=== PATIENT | female | born 1950 ===

== ENCOUNTER 2016-09-15 13:48 | Inpatient (IN) | payer OTHER ==
[2016-09-15] MEDS ORDERED: Sodium Chloride 0.9% 1,000 ML IV ONE (14:19)
--- NOTE | 2016-09-15 14:23 | C.PDOC ---
History Of Present Illness 65 y/o female, with past medical history of depression and diabetes, states she had a "gall bladder cyst that was inflamed and drained 3 weeks ago at [facility]. Patient presents to the emergency department today with complaint of severe RUQ abdominal pain for 3 days. Patient reports pain is radiating to her back and is associated with nausea with bilious vomiting. She notes she has been unable to eat or drink. Also reports low grade fever. Otherwise, denies headache, diarrhea , urinary symptoms, or other complaints at this time. Time Seen by Provider: 09/15/16 14:13 Chief Complaint (Nursing): Abdominal Pain History Per: Patient History/Exam Limitations: no limitations Onset/Duration Of Symptoms: Days Location Of Pain/Discomfort: RUQ Radiation Of Pain To:: Back Quality Of Discomfort: "Pain" Associated Symptoms: Nausea, Vomiting. denies: Fever, Chills, Diarrhea, Urinary Symptoms Recent travel outside of the [place]: No Abnormal Vaginal Bleeding: No Past Medical History Reviewed: Historical Data, Nursing Documentation, Vital Signs Vital Signs: Last Vital Signs Temp 97.5 F L 09/15/16 13:52 Pulse 78 09/15/16 16:39 Resp 20 09/15/16 16:39 BP 138/72 09/15/16 16:39 Pulse Ox 100 09/15/16 21:46 - Medical History PMH: HTN Family History: States: Unknown Family Hx - Social History Hx Alcohol Use: No Hx Substance Use: No - Immunization History Hx Influenza Vaccination: Yes Review Of Systems Except As Marked, All Systems Reviewed And Found Negative. Constitutional: Negative for: Fever, Chills ENT: Negative for: Throat Pain Cardiovascular: Negative for: Chest Pain Respiratory: Negative for: Cough, Shortness of Breath, Wheezing Gastrointestinal: Positive for: Nausea, Vomiting, Abdominal Pain. Negative for : Diarrhea Musculoskeletal: Positive for: Back Pain Skin: Negative for: Rash Neurological: Negative for: Headache Physical Exam - Physical Exam Appears: Non-toxic, Other (uncomfortable) Skin: Warm, Dry Head: Atraumatic, Normacephalic Oral Mucosa: Moist Chest: Symmetrical Cardiovascular: Rhythm Regular Respiratory: Normal Breath Sounds, No Rales, No Rhonchi, No Wheezing Gastrointestinal/Abdominal: Soft, Tenderness (localized, RUQ), No Mass, No Distention, Guarding, No Rebound Back: Normal Inspection, No CVA Tenderness Extremity: Normal ROM, Capillary Refill (< 2 sec. ) Neurological/Psych: Oriented x3, Normal Speech, Normal Cognition ED Course And Treatment - Laboratory Results Result Diagrams: 09/15/16 14:39 09/15/16 14:39 Lab Interpretation: Abnormal (Mild anemia, Elevated BUN 30, Cr 1.9, normal LFTs and lipase) O2 Sat by Pulse Oximetry: 100 (RA) Pulse Ox Interpretation: Normal - CT Scan/US Ultrasound Abdomen complete Other Rad Studies (CT/US): Read By Radiologist, Radiology Report Reviewed CT/US Interpretation: HISTORY: Abdominal pain. COMPARISON: None. TECHNIQUE: Grayscale imaging was performed. FINDINGS: LIVER: Measures 14.5 cm. There is mild diffuse increased echogenicity of the liver parenchyma. No mass. No intrahepatic bile duct dilatation. GALLBLADDER: The gallbladder is distended and there is mild wall thickening. No gallstones. The sonographic Joya's sign is negative. COMMON BILE DUCT: The common bile duct is dilated and measures 1.8 cm. There is a dilated tubular structure adjacent to the gallbladder likely a dilated cystic duct. PANCREAS: Unremarkable as visualized. No mass. No ductal dilatation. RIGHT KIDNEY: Measures 9.5cm. Normal echogenicity. No calculus, mass, or hydronephrosis. LEFT KIDNEY: Measures 10.3cm. Normal echogenicity. No calculus, mass, or hydronephrosis. SPLEEN: Normal in size and contour. No mass. AORTA: No aneurysmal dilatation. IVC: Unremarkable. OTHER FINDINGS: None. IMPRESSION: 1. Mild hepatic steatosis. 2. Distended gallbladder and diffuse dilatation of the common bile duct up without evidence of cholelithiasis or choledocholithiasis. Also suspected is dilatation of the cystic duct. CT scan of the abdomen and pelvis with oral and intravenous contrast is recommended for further evaluation and to exclude periampullary obstruction. CT Abdomen/Pelvis Other Rad Studies (CT/US): Read By Radiologist, Radiology Report Reviewed CT/US Interpretation: FINDINGS: Limitations: Evaluation is limited by lack of intravenous contrast material. Lower thorax: Heart size is normal. There are no focal infiltrates. There are small cysts at the lung bases. ABDOMEN: Liver : There is a small calcification in the liver. Gallbladder and bile ducts: Gallbladder is distended. Common duct is dilated. There is tapering at. the level of the pancreas. There is mild intrahepatic biliary ductal dilatation. Pancreas: Tail and body of the pancreas are atrophic. There is mild prominence of the pancreatic. head. Pancreatic duct is difficult to identify and evaluate. Spleen: unremarkable. Adrenals: unremarkable. Kidneys and ureters: unremarkable. Stomach and bowel: Stomach is almost completely empty. Rotation is normal. Small bowel is. partially opacified with contrast. There is no obstruction. Terminal ileum is unremarkable.Appendix is. not visualized.There is no pericecal inflammation. There is a large amount of stool in the colon. Appendix: See stomach and bowel. PELVIS: Bladder: unremarkable. Reproductive : Uterus and adnexal structures are unremarkable. ABDOMEN and PELVIS: Intraperitoneal space:There is no free air..There is no free fluid. Bones/ joints: unremarkable. Soft tissues: unremarkable. Vasculature: There are vascular calcifications. Lymph nodes: unremarkable. IMPRESSION: Distended gallbladder with dilated intra-and extrahepatic biliary ducts and tapering at the pancreas, atrophy of the pancreatic body and tail with mild prominence of pancreatic head,evaluation limited by lack of intravenous contrast. Obstructing lesion at the pancreatic head or ampulla cannot be excluded. MRCP suggested for more complete evaluation. Progress Note: Abdominal ultrasound and labs ordered. Treated with Zofran, morphine, IV fluids. Reevaluation Time: 22:11 Reassessment Condition: Improved (after pain medication.) - Physician Consult Information Time Consulting Physician Contacted: 22:11 Physician Contacted: Aaron Jolly Outcome Of Conversation: Patient to be admitted for work up of possible pancreatic neoplasm. Disposition - Disposition Disposition: HOSPITALIZED Disposition Time: 22:12 Condition: STABLE - POA Present On Arrival: None - Clinical Impression Clinical Impression: Abdominal pain, Dilated bile duct - Scribe Statement The provider has reviewed the documentation as recorded by the Scribcarlos Conteh All medical record entries made by the Joseibcarlos were at my direction and personally dictated by me. I have reviewed the chart and agree that the record accurately reflects my personal performance of the history, physical exam, medical decision making, and the department course for this patient. I have also personally directed, reviewed, and agree with the discharge instructions and disposition.
[2016-09-15] MEDS ORDERED: Sodium Chloride 0.9% 1,000 ML ONE (14:29)
[2016-09-15 14:43] LABS: BASO # 0.1 K/uL (0.0-0.2); BASO % 1.5 % (0.0-2.0); EOS # 0.3 K/uL (0.0-0.7); EOS % 4.2 % (0.0-4.0); HEMATOCRIT 32.1 % (34.0-47.0); LYMPH # 1.7 K/uL (1.0-4.3); LYMPH % 27.1 % (20.0-40.0); MEAN CELL VOLUME 90.3 fL (81.0-99.0); MEAN CORPUSCULAR HGB CONC 33.2 g/dL (33.0-37.0); MONO # 0.4 K/uL (0.0-0.8); MONO % 6.6 % (0.0-10.0); NRBC % 0.1 % (0.0-2.0); RED CELL DISTRIBUTION WIDTH 13.8 % (11.5-14.5); WHITE BLOOD COUNT 6.4 K/uL (4.8-10.8)
[2016-09-15 14:59] LABS: POTASSIUM 4.4 mmol/L (3.6-5.2)
[2016-09-15 15:01] LABS: ALB/GLOB RATIO 1.2 (1.0-2.1); BILIRUBIN,TOTAL 0.9 mg/dL (0.2-1.3); TOTAL PROTEIN 7.5 g/dL (6.3-8.3)
[2016-09-15 15:02] LABS: CALCIUM 9.4 mg/dl (8.6-10.4)
--- NOTE | 2016-09-15 16:10 | US ---
HISTORY: Abdominal pain COMPARISON: None. TECHNIQUE: Grayscale imaging was performed. FINDINGS: LIVER: Measures 14.5 cm. There is mild diffuse increased echogenicity of the liver parenchyma. No mass. No intrahepatic bile duct dilatation. GALLBLADDER: The gallbladder is distended and there is mild wall thickening. No gallstones. The sonographic Joya's sign is negative. COMMON BILE DUCT: The common bile duct is dilated and measures 1.8 cm. There is a dilated tubular structure adjacent to the gallbladder likely a dilated cystic duct. PANCREAS: Unremarkable as visualized. No mass. No ductal dilatation. RIGHT KIDNEY: Measures 9.5cm. Normal echogenicity. No calculus, mass, or hydronephrosis. LEFT KIDNEY: Measures 10.3cm. Normal echogenicity. No calculus, mass, or hydronephrosis. SPLEEN: Normal in size and contour. No mass. AORTA: No aneurysmal dilatation. IVC: Unremarkable. OTHER FINDINGS: None. IMPRESSION: 1. Mild hepatic steatosis. 2. Distended gallbladder and diffuse dilatation of the common bile duct up without evidence of cholelithiasis or choledocholithiasis. Also suspected is dilatation of the cystic duct. CT scan of the abdomen and pelvis with oral and intravenous contrast is recommended for further evaluation and to exclude periampullary obstruction.
[2016-09-15] MEDS ORDERED: Iohexol 240 (50 ml) PO ONE (17:51)
[2016-09-15] MEDS ORDERED: Iohexol 240 (50 ml) ONE (18:00)
--- NOTE | 2016-09-15 21:42 | CT ---
EXAM: CT Abdomen and Pelvis Without Intravenous Contrast CLINICAL HISTORY: 65 years old, female; Pain; Abdominal pain; Localized; Right upper quadrant (ruq); Additional info: Ruq pain, dilated cbd and cystic duct TECHNIQUE: Axial computed tomography images of the abdomen and pelvis with intravenous contrast. This CT exam was performed using one or more of the following dose reduction techniques: automated exposure control, adjustment of the mA and/or kV according to patient size, and/or use of iterative reconstruction technique. Coronal and sagittal reformatted images were created and reviewed. CONTRAST: 50 mL of omnipaque 240 administered PO EXAM DATE/TIME: 09/15/2016 6:23 PM COMPARISON: There are no prior studies for comparison. FINDINGS: Limitations: Evaluation is limited by lack of intravenous contrast material Lower thorax: Heart size is normal. There are no focal infiltrates. There are small cysts at the lung bases. ABDOMEN: Liver: There is a small calcification in the liver. Gallbladder and bile ducts: Gallbladder is distended. Common duct is dilated. There is tapering at the level of the pancreas. There is mild intrahepatic biliary ductal dilatation Pancreas: Tail and body of the pancreas are atrophic. There is mild prominence of the pancreatic head. Pancreatic duct is difficult to identify and evaluate. Spleen: unremarkable Adrenals: unremarkable Kidneys and ureters: unremarkable Stomach and bowel: Stomach is almost completely empty. Rotation is normal. Small bowel is partially opacified with contrast. There is no obstruction. Terminal ileum is unremarkable.Appendix is not visualized.There is no pericecal inflammation. There is a large amount of stool in the colon. Appendix: See stomach and bowel PELVIS: Bladder: unremarkable Reproductive: Uterus and adnexal structures are unremarkable. ABDOMEN and PELVIS: Intraperitoneal space:There is no free air..There is no free fluid. Bones/joints: unremarkable Soft tissues: unremarkable Vasculature: There are vascular calcifications. Lymph nodes: unremarkable IMPRESSION: Distended gallbladder with dilated intra-and extrahepatic biliary ducts and tapering at the pancreas, atrophy of the pancreatic body and tail with mild prominence of pancreatic head, evaluation limited by lack of intravenous contrast Obstructing lesion at the pancreatic head or ampulla cannot be excluded. MRCP suggested for more complete evaluation
--- NOTE | 2016-09-15 22:26 | CP.PCM.HP ---
<Filiberto Carbajal - Last Filed: 09/16/16 02:20> History of Present Illness - History of Present Illness History of Present Illness: CC: severe RUQ abdominal pain + nausea/vomting for 3 days. HPI: This 65 y/o female with PMHx of HTN, DM, Dilated Gallbladder - presents c/ o RUQ abdominal pain with nausea/vomiting for the past 3 days. She admits to dealing with this issue for over 6 months, and her PMD initially suspected gastritis, treating her appropriately. Her symptoms did not resolve, and 3 weeks ago, her PMD sent her to [facility] for 6/10 RUQ pain. She was admitted for 2 days, received an abdominal US as well as an EGD, however she does not recall the results, stating that it is an issue with her Gallbladder. They treated her pain and gave her IV abx while admitted, however she states that "they did not fix the problem because I do not have insurance." Soon after discharge, her RUQ pain resumed, and 3 days ago, it intensified to an 8/10 with radiation to the R back. She admits to associated nausea, vomiting, and decreased appetite. She has vomited 3-4 times per day, for the past 3 days, and admits to feeling weak a result. She denies hematemesis. She otherwise denies f/ c, dizziness, headache, chest pain, palpitations, sore throat, dysphagia, SOB, d /c, dysuria, LE swelling, recent travel, or sick contacts. ED course: US abdomen, CT abd/pelvis w/PO contrast; NS 1L; Zofran 4mg IVP; Morphine 2mg IVP. PMHx: HTN, DM, Dilated Gallbladder PSHx: GB Cyst drainage (3wks ago) Meds: Metformin 1000mg PO BID; Amlodipine 5mg PO qd; Lisinopril 25mg PO qd; HCTZ 20mg PO qd Allergies: NKDA FamHx: denies SocHx: Denies tobacco, ETOH, or drug use; Lives in apt with family; works as house keeper PMD: Dr. Consuelo Rosales Review of Systems: -Gen: + lethargy, weakness. denies fever, chills, headache. -HEENT: denies headache, dizziness, change in vision, change in hearing, sore throat, dysphagia, congestion. -Cardio: denies chest pain, palpitations, lower extremity edema, orthopnea. -Resp: denies cough, dyspnea, hemoptysis, wheezing, pain on inspiration, congestion, mucous. -GI: +RUQ abdominal pain, nausea/vomiting. denies diarrhea/constipation, hematochezia, hematemesis. -: denies dysuria, urinary freq, incontinence, hematuria, change in urinary stream. -MSK: denies back pain, muscle weakness, radiating pain. -Skin: denies itching, rash, lesions. -Neuro: denies confusion, numbness, tingling, focal weakness, radicular pain, syncope. -Psych: denies anxiety, depression, H/I, S/I, hallucinations. Present on Admission - Present on Admission Any Indicators Present on Admission: No Past Patient History - Past Social History Smoking Status: Never Smoked - CARDIAC Hx Hypertension: Yes - ENDOCRINE/METABOLIC Hx Endocrine Disorders: Yes Hx Diabetes Mellitus Type 2: Yes - PSYCHIATRIC Hx Substance Use: No - SURGICAL HISTORY Hx Surgeries: Yes Other/Comment: EYE SX - ANESTHESIA Hx Anesthesia: Yes Hx Anesthesia Reactions: No Meds Allergies/Adverse Reactions: Allergies Allergy/AdvReac Type Severity Reaction Status Date / Time No Known Allergies Allergy Verified 09/15/16 13:52 Physical Exam - Constitutional Appears: Non-toxic, No Acute Distress - Head Exam Head Exam: ATRAUMATIC, NORMAL INSPECTION - Eye Exam Eye Exam: EOMI, Normal appearance, PERRL - ENT Exam ENT Exam: Mucous Membranes Moist - Neck Exam Neck exam: Negative for: Lymphadenopathy, Tenderness - Respiratory Exam Respiratory Exam: Clear to Auscultation Bilateral, NORMAL BREATHING PATTERN. absent: Rhonchi, Wheezes - Cardiovascular Exam Cardiovascular Exam: REGULAR RHYTHM, +S1, +S2. absent: Systolic Murmur - GI/Abdominal Exam GI & Abdominal Exam: Guarding, Normal Bowel Sounds, Soft, Tenderness (RUQ). absent: Distended, Firm - Extremities Exam Extremities exam: Positive for: normal capillary refill, normal inspection, pedal pulses present. Negative for: pedal edema, tenderness - Back Exam Back exam: NORMAL INSPECTION. absent: CVA tenderness (L), CVA tenderness (R), paraspinal tenderness - Neurological Exam Neurological exam: Alert, CN II-XII Intact, Oriented x3, Reflexes Normal - Psychiatric Exam Psychiatric exam: Normal Affect, Normal Mood - Skin Skin Exam: Dry, Intact, Normal Color, Warm Results - Vital Signs Recent Vital Signs: Last Vital Signs Temp 97.5 F L 09/15/16 13:52 Pulse 78 09/15/16 16:39 Resp 20 09/15/16 16:39 BP 138/72 09/15/16 16:39 Pulse Ox 100 09/15/16 22:13 - Labs Result Diagrams: 09/15/16 14:39 09/15/16 14:39 Labs: Laboratory Results - last 24 hr 09/15/16 09/15/16 14:39 14:39 WBC 6.4 RBC 3.55 L Hgb 10.6 L Hct 32.1 L MCV 90.3 MCH 30.0 MCHC 33.2 RDW 13.8 Plt Count 327 MPV 8.0 Neut % (Auto) 60.6 Lymph % (Auto) 27.1 [place] % (Auto) 6.6 Eos % (Auto) 4.2 H Baso % (Auto) 1.5 Neut # 3.9 Lymph # 1.7 [place] # 0.4 Eos # 0.3 Baso # 0.1 Sodium 140 Potassium 4.4 Chloride 100 Carbon Dioxide 20 L Anion Gap 24 H BUN 30 H Creatinine 1.9 H Est GFR ( Amer) 32 Est GFR (Non-Af Amer) 27 Random Glucose 133 H Calcium 9.4 Total Bilirubin 0.9 AST 31 ALT 33 Alkaline Phosphatase 107 Total Protein 7.5 Albumin 4.1 Globulin 3.4 Albumin/Globulin Ratio 1.2 Lipase 279 Assessment & Plan - Assessment and Plan (Free Text) Assessment: RUQ Abdominal Pain / Dilated Bile ducts * Mild anemia, Elevated BUN 30, Cr 1.9, normal LFTs and lipase) * r/o pancreatic neoplasm * ED course: NS 1L; Zofran 4mg IVP; Morphine 2mg IVP * US abdominal - 1. Mild hepatic steatosis. 2. Distended gallbladder and diffuse dilatation of the common bile duct up without evidence of cholelithiasis or choledocholithiasis. Also suspected is dilatation of the cystic duct. CT scan of the abdomen and pelvis with oral and intravenous contrast is recommended for further evaluation and to exclude periampullary obstruction. (See full report) * CT abdomen/pelvis w/PO contrast - Distended gallbladder with dilated intra- and extrahepatic biliary ducts and tapering at the pancreas, atrophy of the pancreatic body and tail with mild prominence of pancreatic head,evaluation limited by lack of intravenous contrast. Obstructing lesion at the pancreatic head or ampulla cannot be excluded. MRCP suggested for more complete evaluation. (See full report) * GI consult, Dr. Flores, f/u recs * Tylenol 650mg PO Q6H PRN, pain Nausea / Vomiting * Zofran 4mg IVP Q8H prn * Liquid diet Acute Kidney Injury * Likely due to dehydration * NS 1L bolused in ED * GFR 27 * NS 0.9% at 100cc/hr Diabetes * Hold Home med: Metformin 1000mg PO BID for 24 hrs due to PO Contrast * Novolog ISS - low dose * f/u am labs: A1c, TSH, free T4, lipids Hypertension * BP 98/62 on admission --> 138/72 * Continue Home: Amlodipine 5mg PO qd; Lisinopril 20mg PO qd; HCTZ 25mg PO qd Prophylaxis * Liquid diet * Pepcid 20mg IVP daily * Hep 5k SC Q12 * SCDs - Date & Time Date: 09/15/16 Time: 22:30 <Aaron Jolly - Last Filed: 09/16/16 05:46> Results - Vital Signs Recent Vital Signs: Last Vital Signs Temp 97.5 F L 09/16/16 00:25 Pulse 85 09/16/16 00:25 Resp 18 09/16/16 01:12 BP 146/97 H 09/16/16 00:25 Pulse Ox 98 09/16/16 00:25 - Labs Result Diagrams: 09/15/16 14:39 09/15/16 14:39 Assessment & Plan - Date & Time Date: 09/16/16 (I have seen and examined the patient. I agree with the findings and plan of care as documented by Dr. Carbajal. Patient with RUQ abdominal pain with nausea and vomiting. CT positive with dilated CBD and possible lesion. Consult to GI. Possible need for MRCP. Symptomatic treatment for now. Also with acute kidney injury. Likely secondary to hypovolemia. IVF. Received bolus in ED. Monitor for acute changes.) Time: 05:44 Attending/Attestation - Attestation I have personally seen and examined this patient.: Yes I have fully participated in the care of the patient.: Yes I have reviewed all pertinent clinical information: Yes
[2016-09-16] MEDS ORDERED: Sodium Chloride 0.9% 1,000 ML IV SCH (02:15)
[2016-09-16] MEDS: Sodium Chloride 0.9% 1,000 ML IV SCH (02:48)
[2016-09-16] MEDS: (Novolog) Insulin Aspart, Recombinant 100 u/ml 10 ml vial SC SCH ×3 (07:30→11:21)
--- NOTE | 2016-09-16 07:50 | CP.PCM.CON ---
History of Present Illness - History of Present Illness History of Present Illness: ASked to see pt for abdom pain. Pt seen with [facility]. Pt repots was recently pamela Booker with same- RUq pain. Had "GB CYST drained". Had EGD .CT, MRI there. Now presents to with same RUQ pain.- sharp on and off, moderate. Also nausea and vomiting. Review of Systems - Constitutional Constitutional: Anorexia. absent: Chills, Fever - Cardiovascular Cardiovascular: absent: Chest Pain, Dyspnea - Respiratory Respiratory: absent: Hemoptysis, Wheezing - Gastrointestinal Gastrointestinal: Abdominal Pain, Nausea, Vomiting. absent: Diarrhea, Hematemesis, Hematochezia, Melena - Musculoskeletal Musculoskeletal: absent: Muscle Cramps - Integumentary Integumentary: absent: Jaundice - Neurological Neurological: absent: Convulsions Past Patient History - Past Medical History & Family History Past Medical History?: Yes - Past Social History Smoking Status: Never Smoked - CARDIAC Hx Hypertension: Yes - PULMONARY Hx Respiratory Disorders: No - NEUROLOGICAL Hx Neurological Disorder: No - HEENT Hx HEENT Problems: No - ENDOCRINE/METABOLIC Hx Endocrine Disorders: Yes Hx Diabetes Mellitus Type 2: Yes - HEMATOLOGICAL/ONCOLOGICAL Hx Blood Disorders: No - INTEGUMENTARY Hx Dermatological Problems: No - MUSCULOSKELETAL/RHEUMATOLOGICAL Hx Falls: No - GASTROINTESTINAL Hx Gastrointestinal Disorders: Yes Hx Fatty Liver Disease: Yes Hx Gall Bladder Disease: Yes - GENITOURINARY/GYNECOLOGICAL Hx Genitourinary Disorders: No - PSYCHIATRIC Hx Substance Use: No - SURGICAL HISTORY Hx Surgeries: Yes Other/Comment: EYE SX - ANESTHESIA Hx Anesthesia: Yes Hx Anesthesia Reactions: No Meds Allergies/Adverse Reactions: Allergies Allergy/AdvReac Type Severity Reaction Status Date / Time No Known Allergies Allergy Verified 09/15/16 13:52 - Medications Medications: Current Medications Acetaminophen (Tylenol 325mg Tab) 650 mg PO Q6 PRN PRN Reason: Pain, Mild (1-3) Amlodipine Besylate (Norvasc) 5 mg PO DAILY [facility] Famotidine (Pepcid) 20 mg IVP DAILY [facility] Heparin Sodium (Porcine) (Heparin) 5,000 units SC Q12 [facility] Hydrochlorothiazide (Hydrodiuril) 25 mg PO DAILY [facility] Sodium Chloride (Sodium Chloride 0.9%) 1,000 mls @ 100 mls/hr IV .Q10H [facility] Last Admin: 09/16/16 02:48 Dose: 100 mls/hr Insulin Aspart (Novolog) 0 unit SC ACHS [facility] PRN Reason: Protocol Lisinopril (Zestril) 20 mg PO DAILY [facility] Ondansetron HCl (Zofran Inj) 4 mg IVP Q8H PRN PRN Reason: Nausea/Vomiting Pneumococcal Polyvalent Vaccine (Pneumovax 23 Vaccine) 0.5 ml IM .ONCE ONE Stop: 09/18/16 10:01 Physical Exam - Constitutional Appears: Well - Respiratory Exam Respiratory Exam: Clear to Auscultation Bilateral - Cardiovascular Exam Cardiovascular Exam: RRR - GI/Abdominal Exam GI & Abdominal Exam: Normal Bowel Sounds, Soft, Tenderness. absent: Distended, Guarding, Mass, Rebound Additional comments: mild ruq tenderness - Extremities Exam Extremities exam: Positive for: normal inspection - Neurological Exam Neurological exam: Alert, Oriented x3 Results - Vital Signs Recent Vital Signs: Last Vital Signs Temp 97.5 F L 09/16/16 00:25 Pulse 85 09/16/16 00:25 Resp 18 09/16/16 01:12 BP 146/97 H 09/16/16 00:25 Pulse Ox 98 09/16/16 00:25 - Labs Result Diagrams: 09/15/16 14:39 09/15/16 14:39 Labs: Laboratory Results - last 24 hr 09/16/16 07:17 POC Glucose (mg/dL) 108 Assessment & Plan (1) Diabetes mellitus Status: Acute (2) HTN (hypertension) Status: Acute (3) Vomiting Assessment and Plan: Related to gallbladder? Consider gastritis. Pt reports she was told has gastritis. Status: Acute (4) Anemia Status: Acute (5) Gallbladder disease Assessment and Plan: DIstended GB,. She reports that she had a GB cyst drained at [facility] and was on antibiotics. LFTs are normal. No ductal stones seen. Lipase is normal. REC: Surgery consult. NPO. Pepcid/PPI,Get records , scans, MRI from [facility]. Status: Acute (6) Abdominal pain Status: Acute (7) Dilated bile duct Status: Acute
[2016-09-16 08:23] LABS: BASO # 0.1 K/uL (0.0-0.2); EOS # 0.4 K/uL (0.0-0.7); EOS % 6.8 % (0.0-4.0); HEMATOCRIT 32.8 % (34.0-47.0); LYMPH # 1.9 K/uL (1.0-4.3); LYMPH % 30.2 % (20.0-40.0); MEAN CELL VOLUME 89.8 fL (81.0-99.0); MEAN CORPUSCULAR HGB CONC 33.5 g/dL (33.0-37.0); MEAN PLATELET VOLUME 8.3 fL (7.2-11.7); MONO # 0.4 K/uL (0.0-0.8); MONO % 7.1 % (0.0-10.0); RED CELL DISTRIBUTION WIDTH 14.3 % (11.5-14.5); WHITE BLOOD COUNT 6.2 K/uL (4.8-10.8)
[2016-09-16 08:50] LABS: ALB/GLOB RATIO 1.2 (1.0-2.1); BILIRUBIN,TOTAL 1.1 mg/dL (0.2-1.3); PHOSPHOROUS 3.3 mg/dL (2.5-4.5); TOTAL PROTEIN 7.4 g/dL (6.3-8.3)
[2016-09-16 08:51] LABS: CALCIUM 9.2 mg/dl (8.6-10.4); MAGNESIUM 1.3 mg/dL (1.6-2.3)
[2016-09-16 09:28] LABS: THYROID STIMULATING HORMONE 1.93 mIU/L (0.46-4.68)
[2016-09-16] MEDS ORDERED: Magnesium Sulfate 1 gm in D5W 1 GM/100 ML BAG IVPB ONE (10:05)
[2016-09-16 11:54] LABS: CHOLESTEROL 181 mg/dL (0-199)
[2016-09-16 12:30] LABS: CA 19-9 < 1.4 U/mL (0-37)
[2016-09-16 15:47] VITALS: RESP 20
--- NOTE | 2016-09-16 16:00 | CP.PCM.PN ---
<Cara Chambers - Last Filed: 09/16/16 19:00> Subjective - Date & Time of Evaluation Date of Evaluation: 09/16/16 Time of Evaluation: 07:00 - Subjective Subjective: PGY1- Medicine Note- Dr. Fajardo's Service Patient seen and examined at bedside and in no acute distress. Patient is having abdominal pain still which she says starts at epigastrum and radiates to RUQ. Patient rates the pain an 8/10. Patient denies nausea, vomiting, shortness of breath, chest pain, constipation, diarrhea. Objective - Vital Signs/Intake and Output Vital Signs (last 24 hours): Temp Pulse Resp BP Pulse Ox 98.1 F 86 20 124/74 96 09/16/16 15:45 09/16/16 15:45 09/16/16 15:45 09/16/16 15:45 09/16/16 15:45 - Medications Medications: Current Medications Acetaminophen (Tylenol 325mg Tab) 650 mg PO Q6 PRN PRN Reason: Pain, Mild (1-3) Amlodipine Besylate (Norvasc) 5 mg PO DAILY [facility] Last Admin: 09/16/16 10:15 Dose: 5 mg Famotidine (Pepcid) 20 mg IVP DAILY [facility] Last Admin: 09/16/16 10:45 Dose: 20 mg Heparin Sodium (Porcine) (Heparin) 5,000 units SC Q12 [facility] Last Admin: 09/16/16 10:14 Dose: 5,000 units Hydrochlorothiazide (Hydrodiuril) 25 mg PO DAILY [facility] Last Admin: 09/16/16 10:15 Dose: 25 mg Sodium Chloride (Sodium Chloride 0.9%) 1,000 mls @ 100 mls/hr IV .Q10H [facility] Last Admin: 09/16/16 02:48 Dose: 100 mls/hr Insulin Aspart (Novolog) 0 unit SC ACHS [facility] PRN Reason: Protocol Last Admin: 09/16/16 11:21 Dose: Not Given Lisinopril (Zestril) 20 mg PO DAILY [facility] Last Admin: 09/16/16 10:14 Dose: 20 mg Ondansetron HCl (Zofran Inj) 4 mg IVP Q8H PRN PRN Reason: Nausea/Vomiting Pneumococcal Polyvalent Vaccine (Pneumovax 23 Vaccine) 0.5 ml IM .ONCE ONE Stop: 09/18/16 10:01 - Labs Labs: 09/16/16 08:10 09/16/16 08:10 - Constitutional Appears: Well, Non-toxic - Head Exam Head Exam: ATRAUMATIC, NORMAL INSPECTION, NORMOCEPHALIC - Eye Exam Eye Exam: EOMI, Normal appearance, PERRL - ENT Exam ENT Exam: Mucous Membranes Moist, Normal Exam - Neck Exam Neck Exam: Full ROM, Normal Inspection. absent: Lymphadenopathy - Respiratory Exam Respiratory Exam: Clear to Ausculation Bilateral, NORMAL BREATHING PATTERN. absent: Rhonchi, Wheezes, Respiratory Distress, Stridor - Cardiovascular Exam Cardiovascular Exam: REGULAR RHYTHM, RRR - GI/Abdominal Exam GI & Abdominal Exam: Soft, Tenderness, Normal Bowel Sounds Additional comments: RUQ tenderness - Extremities Exam Extremities Exam: Full ROM, Normal Inspection. absent: Pedal Edema - Back Exam Back Exam: NORMAL INSPECTION. absent: rash noted - Neurological Exam Neurological Exam: Alert, Awake, Oriented x3 - Psychiatric Exam Psychiatric exam: Normal Affect, Normal Mood - Skin Skin Exam: Dry, Normal Color, Warm Assessment and Plan - Assessment and Plan (Free Text) Assessment: RUQ Abdominal Pain / Dilated Bile ducts * Mild anemia, Elevated BUN 30, Cr 1.9, normal LFTs and lipase * Creatinine decreased to 1.2 on 09/16 * r/o pancreatic neoplasm * ED course: NS 1L; Zofran 4mg IVP; Morphine 2mg IVP * US abdominal - 1. Mild hepatic steatosis. 2. Distended gallbladder and diffuse dilatation of the common bile duct up without evidence of cholelithiasis or choledocholithiasis. Also suspected is dilatation of the cystic duct. CT scan of the abdomen and pelvis with oral and intravenous contrast is recommended for further evaluation and to exclude periampullary obstruction. (See full report) * CT abdomen/pelvis w/PO contrast - Distended gallbladder with dilated intra- and extrahepatic biliary ducts and tapering at the pancreas, atrophy of the pancreatic body and tail with mild prominence of pancreatic head,evaluation limited by lack of intravenous contrast. Obstructing lesion at the pancreatic head or ampulla cannot be excluded. MRCP suggested for more complete evaluation. (See full report) * GI consult, Dr. Flores, help appreciated * Surgery, Dr. Balbuena consulted, help appreciated * Tylenol 650mg PO Q6H PRN, pain Nausea / Vomiting * Zofran 4mg IVP Q8H prn * Liquid diet Acute Kidney Injury * Likely due to dehydration * NS 1L bolused in ED * GFR 27 * GFR increased to 45 on 09/16 * NS 0.9% at 100cc/hr Diabetes * Hold Home med: Metformin 1000mg PO BID for 24 hrs due to PO Contrast * Novolog ISS - low dose * f/u am labs: A1c: 6.4 * TSH: 1.93 * free T4: 1.24 * lipids WNL Hypertension * BP 98/62 on admission --> 138/72 * Continue Home: Amlodipine 5mg PO qd; Lisinopril 20mg PO qd; HCTZ 25mg PO qd Prophylaxis * Liquid diet * Pepcid 20mg IVP daily * Hep 5k SC Q12 * SCDs <Jaylyn Fajardo V - Last Filed: 09/16/16 19:40> Objective - Vital Signs/Intake and Output Vital Signs (last 24 hours): Temp Pulse Resp BP Pulse Ox 98.1 F 86 20 124/74 96 09/16/16 15:45 09/16/16 15:45 09/16/16 15:45 09/16/16 15:45 09/16/16 15:45 - Medications Medications: Current Medications Acetaminophen (Tylenol 325mg Tab) 650 mg PO Q6 PRN PRN Reason: Pain, Mild (1-3) Amlodipine Besylate (Norvasc) 5 mg PO DAILY [facility] Last Admin: 09/16/16 10:15 Dose: 5 mg Famotidine (Pepcid) 20 mg IVP DAILY [facility] Last Admin: 09/16/16 10:45 Dose: 20 mg Heparin Sodium (Porcine) (Heparin) 5,000 units SC Q12 [facility] Last Admin: 09/16/16 10:14 Dose: 5,000 units Hydrochlorothiazide (Hydrodiuril) 25 mg PO DAILY [facility] Last Admin: 09/16/16 10:15 Dose: 25 mg Sodium Chloride (Sodium Chloride 0.9%) 1,000 mls @ 100 mls/hr IV .Q10H [facility] Last Admin: 09/16/16 02:48 Dose: 100 mls/hr Insulin Aspart (Novolog) 0 unit SC ACHS [facility] PRN Reason: Protocol Last Admin: 09/16/16 11:21 Dose: Not Given Lisinopril (Zestril) 20 mg PO DAILY [facility] Last Admin: 09/16/16 10:14 Dose: 20 mg Ondansetron HCl (Zofran Inj) 4 mg IVP Q8H PRN PRN Reason: Nausea/Vomiting Pneumococcal Polyvalent Vaccine (Pneumovax 23 Vaccine) 0.5 ml IM .ONCE ONE Stop: 09/18/16 10:01 - Labs Labs: 09/16/16 08:10 09/16/16 08:10 Attending/Attestation - Attestation I have personally seen and examined this patient.: Yes I have fully participated in the care of the patient.: Yes I have reviewed all pertinent clinical information, including history, physical exam and plan: Yes Notes (Text): Patient seen, examined and case discussed with day-time resident. Patient seen at bedside this morning. Patient reporting Right Upper quadrant pain. Patient reports she was recently hospitalized at [facility] completed GI workup including imaging and possible endoscopy. Patient given written consent to retrieve reports from [facility] to retrieve reports. Patient reports she has some type of cyst requiring surgical intervention but could not afford the surgery secondary to insurance. GI on consult-->help appreciated General surgery on consult--f/u recommendations Assessment/Plan 1) Abdominal Pain * GI consult, Dr. Flores, help appreciated * Surgery, Dr. Balbuena consulted, help appreciated * US abdominal - 1. Mild hepatic steatosis. 2. Distended gallbladder and diffuse dilatation of the common bile duct up without evidence of cholelithiasis or choledocholithiasis. Also suspected is dilatation of the cystic duct. CT scan of the abdomen and pelvis with oral and intravenous contrast is recommended for further evaluation and to exclude periampullary obstruction. (See full report) * CT abdomen/pelvis w/PO contrast - Distended gallbladder with dilated intra- and extrahepatic biliary ducts and tapering at the pancreas, atrophy of the pancreatic body and tail with mild prominence of pancreatic head,evaluation limited by lack of intravenous contrast. Obstructing lesion at the pancreatic head or ampulla cannot be excluded. MRCP suggested for more complete evaluation. (See full report) * Attempt to retrieve prior records from prior hospitalization at [facility]? * Tylenol 650mg PO Q6H PRN, pain 2) Nausea / Vomiting * Zofran 4mg IVP Q8H prn * Liquid diet 3) Acute Kidney Injury * possible due to dehydration * NS 0.9% at 100cc/hr * Monitor BUN/CR * Unknown baseline 4) Diabetes * Controlled * Hold Home med: Metformin 1000mg PO BID for 24-48 hours due to PO Contrast * Lisinopril 20mg PO qdaily * Novolog ISS - low dose * f/u am labs: A1c: 6.4 * TSH: 1.93 * free T4: 1.24 * lipids WNL 5) Hypertension * BP 98/62 on admission --> 138/72 * Continue Home: Amlodipine 5mg PO qdaily; Lisinopril 20mg PO qdaily; HCTZ 25mg PO qdaily 6) Prophylaxis * Liquid diet * Pepcid 20mg IVP daily for GI ppx * Hep 5000 SC Q12 for DVT ppx * SCDs
--- NOTE | 2016-09-16 17:01 | CP.PCM.CON ---
Addendum entered and electronically signed by Orin Daigle DO 09/16/16 17: 27: Proposal Coordinator changed to Dr. Balbuena. Will discuss with Dr. Balbuena regarding further treatment plan. Original Note: <Orin Daigle - Last Filed: 09/16/16 17:02> History of Present Illness - History of Present Illness History of Present Illness: Surgery: Dr. 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 Patient states that she has had RUQ pain for the past 3 months. She states over the past 3 days there has been an acute worsening in the pain. She reports associated nausea and vomiting. She states the pain is worse when she eats. She states that she was scheduled for operation for the cyst at [facility] 1.5 months ago however due to insurance problems the surgery was cancelled. She states at that hospital underwent MRCP and Endoscopy. Originally she states the cyst was the size of a raisin however most recent hospitalization was told the cyst has significantly increased in size. PMH: HTN, DM, biliary tree cyst PSH: catatract Social: lives at home, no abuse of ETOH or tobacco Review of Systems - Review of Systems All systems: reviewed and no additional remarkable complaints except Review of Systems: otherwise negative unless stated in HPI Past Patient History - Past Medical History & Family History Past Medical History?: Yes - Past Social History Smoking Status: Never Smoked - CARDIAC Hx Hypertension: Yes - PULMONARY Hx Respiratory Disorders: No - NEUROLOGICAL Hx Neurological Disorder: No - HEENT Hx HEENT Problems: No - ENDOCRINE/METABOLIC Hx Endocrine Disorders: Yes Hx Diabetes Mellitus Type 2: Yes - HEMATOLOGICAL/ONCOLOGICAL Hx Blood Disorders: No - INTEGUMENTARY Hx Dermatological Problems: No - MUSCULOSKELETAL/RHEUMATOLOGICAL Hx Falls: No - GASTROINTESTINAL Hx Gastrointestinal Disorders: Yes Hx Fatty Liver Disease: Yes Hx Gall Bladder Disease: Yes - GENITOURINARY/GYNECOLOGICAL Hx Genitourinary Disorders: No - PSYCHIATRIC Hx Substance Use: No - SURGICAL HISTORY Hx Surgeries: Yes Other/Comment: EYE SX - ANESTHESIA Hx Anesthesia: Yes Hx Anesthesia Reactions: No Meds Allergies/Adverse Reactions: Allergies Allergy/AdvReac Type Severity Reaction Status Date / Time No Known Allergies Allergy Verified 09/15/16 13:52 - Medications Medications: Current Medications Acetaminophen (Tylenol 325mg Tab) 650 mg PO Q6 PRN PRN Reason: Pain, Mild (1-3) Amlodipine Besylate (Norvasc) 5 mg PO DAILY [facility] Last Admin: 09/16/16 10:15 Dose: 5 mg Famotidine (Pepcid) 20 mg IVP DAILY [facility] Last Admin: 09/16/16 10:45 Dose: 20 mg Heparin Sodium (Porcine) (Heparin) 5,000 units SC Q12 [facility] Last Admin: 09/16/16 10:14 Dose: 5,000 units Hydrochlorothiazide (Hydrodiuril) 25 mg PO DAILY [facility] Last Admin: 09/16/16 10:15 Dose: 25 mg Sodium Chloride (Sodium Chloride 0.9%) 1,000 mls @ 100 mls/hr IV .Q10H [facility] Last Admin: 09/16/16 02:48 Dose: 100 mls/hr Insulin Aspart (Novolog) 0 unit SC ACHS [facility] PRN Reason: Protocol Last Admin: 09/16/16 11:21 Dose: Not Given Lisinopril (Zestril) 20 mg PO DAILY [facility] Last Admin: 09/16/16 10:14 Dose: 20 mg Ondansetron HCl (Zofran Inj) 4 mg IVP Q8H PRN PRN Reason: Nausea/Vomiting Pneumococcal Polyvalent Vaccine (Pneumovax 23 Vaccine) 0.5 ml IM .ONCE ONE Stop: 09/18/16 10:01 Physical Exam - Constitutional Appears: Non-toxic, No Acute Distress - Head Exam Head Exam: ATRAUMATIC, NORMOCEPHALIC - Eye Exam Eye Exam: EOMI, Normal appearance - ENT Exam ENT Exam: Mucous Membranes Moist - Respiratory Exam Respiratory Exam: NORMAL BREATHING PATTERN. absent: Respiratory Distress - Cardiovascular Exam Cardiovascular Exam: REGULAR RHYTHM. absent: Tachycardia - GI/Abdominal Exam GI & Abdominal Exam: Soft, Tenderness (RUQ moderate w/ fullness palpated in RUQ possibly gallbladder ). absent: Firm, Guarding, Rebound, Rigid - Extremities Exam Extremities exam: Positive for: normal inspection. Negative for: calf tenderness, pedal edema - Neurological Exam Neurological exam: Alert, Oriented x3 - Psychiatric Exam Psychiatric exam: Normal Affect, Normal Mood - Skin Skin Exam: Dry, Intact, Normal Color, Warm Results - Vital Signs Recent Vital Signs: Last Vital Signs Temp 98.1 F 09/16/16 15:45 Pulse 86 09/16/16 15:45 Resp 20 09/16/16 15:45 BP 124/74 09/16/16 15:45 Pulse Ox 96 09/16/16 15:45 - Labs Result Diagrams: 09/16/16 08:10 09/16/16 08:10 Labs: Laboratory Results - last 24 hr 09/16/16 09/16/16 09/16/16 07:17 08:10 08:10 WBC 6.2 RBC 3.65 L Hgb 11.0 Hct 32.8 L MCV 89.8 MCH 30.0 MCHC 33.5 RDW 14.3 Plt Count 333 MPV 8.3 Neut % (Auto) 54.9 Lymph % (Auto) 30.2 [place] % (Auto) 7.1 Eos % (Auto) 6.8 H Baso % (Auto) 1.0 Neut # 3.4 Lymph # 1.9 [place] # 0.4 Eos # 0.4 Baso # 0.1 Sodium 138 Potassium 4.0 Chloride 98 Carbon Dioxide 22 Anion Gap 21 H BUN 19 H Creatinine 1.2 Est GFR ( Amer) 55 Est GFR (Non-Af Amer) 45 POC Glucose (mg/dL) 108 Random Glucose 120 H Hemoglobin A1c Calcium 9.2 Phosphorus 3.3 Magnesium 1.3 L Total Bilirubin 1.1 GGT AST 26 ALT 39 Alkaline Phosphatase 110 Total Protein 7.4 Albumin 4.1 Globulin 3.3 Albumin/Globulin Ratio 1.2 Triglycerides Cholesterol LDL Cholesterol Direct HDL Cholesterol CA 19-9 Antigen Free T4 TSH 3rd Generation 1.93 09/16/16 09/16/16 09/16/16 08:10 08:10 11:21 WBC RBC Hgb Hct MCV MCH MCHC RDW Plt Count MPV Neut % (Auto) Lymph % (Auto) [place] % (Auto) Eos % (Auto) Baso % (Auto) Neut # Lymph # [place] # Eos # Baso # Sodium Potassium Chloride Carbon Dioxide Anion Gap BUN Creatinine Est GFR ( Amer) Est GFR (Non-Af Amer) POC Glucose (mg/dL) 99 Random Glucose Hemoglobin A1c 6.4 Calcium Phosphorus Magnesium Total Bilirubin GGT AST ALT Alkaline Phosphatase Total Protein Albumin Globulin Albumin/Globulin Ratio Triglycerides Cholesterol LDL Cholesterol Direct HDL Cholesterol CA 19-9 Antigen Free T4 1.24 TSH 3rd Generation 09/16/16 09/16/16 11:35 16:10 WBC RBC Hgb Hct MCV MCH MCHC RDW Plt Count MPV Neut % (Auto) Lymph % (Auto) [place] % (Auto) Eos % (Auto) Baso % (Auto) Neut # Lymph # [place] # Eos # Baso # Sodium Potassium Chloride Carbon Dioxide Anion Gap BUN Creatinine Est GFR ( Amer) Est GFR (Non-Af Amer) POC Glucose (mg/dL) 175 H Random Glucose Hemoglobin A1c Calcium Phosphorus Magnesium Total Bilirubin GGT 237 H AST ALT Alkaline Phosphatase Total Protein Albumin Globulin Albumin/Globulin Ratio Triglycerides 107 Cholesterol 181 LDL Cholesterol Direct 108 HDL Cholesterol 43 CA 19-9 Antigen < 1.4 Free T4 TSH 3rd Generation - Impressions Impression: CT: dilated intra and extra hepatic biliary ducts, pancreas not visualized well u/s: showed CBD 1.8cm diameter Assessment & Plan - Assessment and Plan (Free Text) Assessment: 65 y/o female w/ RUQ abdominal pain most likely related to biliary tree cyst Plan: -f/u reports for [facility] -needs to f/u with original hepatobiliary surgeon -no plans for surgical intervention at this time, ok for diet as tolerated -f/u GI recommendations -if reports unobtainable would recommend repeat MRCP -will cont to follow -further recs per Dr. Roxanna Rodriguez PGY3 <Ganesh Balbuena - Last Filed: 09/17/16 22:39> Meds - Medications Medications: Current Medications Acetaminophen (Tylenol 325mg Tab) 650 mg PO Q6 PRN PRN Reason: Pain, Mild (1-3) Last Admin: 09/17/16 22:08 Dose: 650 mg Amlodipine Besylate (Norvasc) 5 mg PO DAILY [facility] Last Admin: 09/17/16 09:29 Dose: 5 mg Famotidine (Pepcid) 20 mg IVP DAILY [facility] Last Admin: 09/17/16 12:13 Dose: 20 mg Heparin Sodium (Porcine) (Heparin) 5,000 units SC Q12 [facility] Last Admin: 09/17/16 21:55 Dose: 5,000 units Hydrochlorothiazide (Hydrodiuril) 25 mg PO DAILY [facility] Last Admin: 09/17/16 09:29 Dose: 25 mg Sodium Chloride (Sodium Chloride 0.9%) 1,000 mls @ 100 mls/hr IV .Q10H [facility] Last Admin: 09/17/16 22:06 Dose: 100 mls/hr Insulin Aspart (Novolog) 0 unit SC ACHS [facility] PRN Reason: Protocol Last Admin: 09/17/16 21:57 Dose: Not Given Lisinopril (Zestril) 20 mg PO DAILY [facility] Last Admin: 09/17/16 09:49 Dose: 20 mg Ondansetron HCl (Zofran Inj) 4 mg IVP Q8H PRN PRN Reason: Nausea/Vomiting Last Admin: 09/17/16 22:06 Dose: 4 mg Oxycodone/Acetaminophen (Percocet 5/325 Mg Tab) 1 tab PO Q4H PRN PRN Reason: Pain, moderate (4-7) Stop: 09/20/16 09:50 Pneumococcal Polyvalent Vaccine (Pneumovax 23 Vaccine) 0.5 ml IM .ONCE ONE Stop: 09/18/16 10:01 Results - Vital Signs Recent Vital Signs: Last Vital Signs Temp 97.2 F L 09/17/16 16:00 Pulse 83 09/17/16 16:00 Resp 20 09/17/16 16:00 BP 129/69 09/17/16 16:00 Pulse Ox 97 09/17/16 16:00 - Labs Result Diagrams: 09/17/16 08:58 09/17/16 08:58 Labs: Laboratory Results - last 24 hr 09/17/16 09/17/16 09/17/16 07:10 08:58 08:58 WBC 5.4 RBC 3.53 L Hgb 10.7 L Hct 31.8 L MCV 90.2 MCH 30.2 MCHC 33.5 RDW 14.0 Plt Count 327 MPV 8.6 Neut % (Auto) 51.4 Lymph % (Auto) 33.5 [place] % (Auto) 7.1 Eos % (Auto) 6.7 H Baso % (Auto) 1.3 Neut # 2.8 Lymph # 1.8 [place] # 0.4 Eos # 0.4 Baso # 0.1 APTT Sodium 138 Potassium 4.5 Chloride 100 Carbon Dioxide 22 Anion Gap 21 H BUN 14 Creatinine 1.3 H Est GFR ( Amer) 50 Est GFR (Non-Af Amer) 41 POC Glucose (mg/dL) 106 Random Glucose 145 H Calcium 9.1 Phosphorus 3.8 Magnesium 1.5 L Total Bilirubin 0.9 AST 24 ALT 35 Alkaline Phosphatase 99 Total Protein 7.0 Albumin 3.9 Globulin 3.1 Albumin/Globulin Ratio 1.3 Urine Color Urine Clarity Urine pH Ur Specific Williams Urine Protein Urine Glucose (UA) Urine Ketones Urine Blood Urine Nitrate Urine Bilirubin Urine Urobilinogen Ur Leukocyte Esterase Urine WBC (Auto) Ur Squamous Epith Cells C. difficile Ag & Toxin 09/17/16 09/17/16 09/17/16 08:58 12:10 13:34 WBC RBC Hgb Hct MCV MCH MCHC RDW Plt Count MPV Neut % (Auto) Lymph % (Auto) [place] % (Auto) Eos % (Auto) Baso % (Auto) Neut # Lymph # [place] # Eos # Baso # APTT 32 Sodium Potassium Chloride Carbon Dioxide Anion Gap BUN Creatinine Est GFR ( Amer) Est GFR (Non-Af Amer) POC Glucose (mg/dL) 113 H Random Glucose Calcium Phosphorus Magnesium Total Bilirubin AST ALT Alkaline Phosphatase Total Protein Albumin Globulin Albumin/Globulin Ratio Urine Color Yellow Urine Clarity Clear Urine pH 5.0 Ur Specific Williams 1.009 Urine Protein Negative Urine Glucose (UA) Normal Urine Ketones Negative Urine Blood Negative Urine Nitrate Negative Urine Bilirubin Negative Urine Urobilinogen Normal Ur Leukocyte Esterase Neg Urine WBC (Auto) < 1 Ur Squamous Epith Cells < 1 C. difficile Ag & Toxin 09/17/16 09/17/16 09/17/16 16:56 18:10 21:23 WBC RBC Hgb Hct MCV MCH MCHC RDW Plt Count MPV Neut % (Auto) Lymph % (Auto) [place] % (Auto) Eos % (Auto) Baso % (Auto) Neut # Lymph # [place] # Eos # Baso # APTT Sodium Potassium Chloride Carbon Dioxide Anion Gap BUN Creatinine Est GFR ( Amer) Est GFR (Non-Af Amer) POC Glucose (mg/dL) 173 H 93 Random Glucose Calcium Phosphorus Magnesium Total Bilirubin AST ALT Alkaline Phosphatase Total Protein Albumin Globulin Albumin/Globulin Ratio Urine Color Urine Clarity Urine pH Ur Specific Williams Urine Protein Urine Glucose (UA) Urine Ketones Urine Blood Urine Nitrate Urine Bilirubin Urine Urobilinogen Ur Leukocyte Esterase Urine WBC (Auto) Ur Squamous Epith Cells C. difficile Ag & Toxin Negative Attending/Attestation - Attestation I have personally seen and examined this patient.: Yes I have fully participated in the care of the patient.: Yes I have reviewed all pertinent clinical information: Yes Notes (Text): 09/17/16 22:38 Pt was seen and examined at bedside on 09/17/16 Agree with above note and assessment Pt with Dilated intra and Extrahepatic billiary tree No need for any surgical intervention F.U as out pt with hepatobillary surgeon Plan d.w pt in detail Risk and benefit explained in detail
--- NOTE | 2016-09-17 03:25 | CP.PCM.PN ---
<AkashEmerson kamara Lela - Last Filed: 09/17/16 03:23> Subjective - Date & Time of Evaluation Date of Evaluation: 09/17/16 Time of Evaluation: 06:20 - Subjective Subjective: Patient was seen lying comfortably in bed. She complained of right upper quadrant abdominal pain, she rates the pain a 5/10. She says she's tolerating her liquid diet. She was not nauseous or vomiting when I saw her but she says that the nausea and vomiting come and go. She rest of the ROS prompts were negative. She denied chest pain, headache, shortness of breath, diarrhea, consitipation, vomiting, fever, chills. Objective - Vital Signs/Intake and Output Vital Signs (last 24 hours): Temp Pulse Resp BP Pulse Ox 98.3 F 84 20 124/66 97 09/17/16 00:53 09/17/16 00:53 09/17/16 00:53 09/17/16 00:53 09/17/16 00:53 - Medications Medications: Current Medications Acetaminophen (Tylenol 325mg Tab) 650 mg PO Q6 PRN PRN Reason: Pain, Mild (1-3) Last Admin: 09/16/16 21:39 Dose: 650 mg Amlodipine Besylate (Norvasc) 5 mg PO DAILY [facility] Last Admin: 09/16/16 10:15 Dose: 5 mg Famotidine (Pepcid) 20 mg IVP DAILY [facility] Last Admin: 09/16/16 10:45 Dose: 20 mg Heparin Sodium (Porcine) (Heparin) 5,000 units SC Q12 [facility] Last Admin: 09/16/16 21:41 Dose: 5,000 units Hydrochlorothiazide (Hydrodiuril) 25 mg PO DAILY [facility] Last Admin: 09/16/16 10:15 Dose: 25 mg Sodium Chloride (Sodium Chloride 0.9%) 1,000 mls @ 100 mls/hr IV .Q10H [facility] Last Admin: 09/16/16 02:48 Dose: 100 mls/hr Insulin Aspart (Novolog) 0 unit SC ACHS [facility] PRN Reason: Protocol Last Admin: 09/16/16 11:21 Dose: Not Given Lisinopril (Zestril) 20 mg PO DAILY [facility] Last Admin: 09/16/16 10:14 Dose: 20 mg Ondansetron HCl (Zofran Inj) 4 mg IVP Q8H PRN PRN Reason: Nausea/Vomiting Pneumococcal Polyvalent Vaccine (Pneumovax 23 Vaccine) 0.5 ml IM .ONCE ONE Stop: 09/18/16 10:01 - Labs Labs: 09/16/16 08:10 09/16/16 08:10 - Constitutional Appears: No Acute Distress - Head Exam Head Exam: NORMAL INSPECTION - Eye Exam Eye Exam: Normal appearance - ENT Exam ENT Exam: Mucous Membranes Moist - Neck Exam Neck Exam: Normal Inspection - Respiratory Exam Respiratory Exam: Clear to Ausculation Bilateral, NORMAL BREATHING PATTERN - Cardiovascular Exam Cardiovascular Exam: REGULAR RHYTHM, +S1, +S2. absent: Murmur - GI/Abdominal Exam GI & Abdominal Exam: Soft, Normal Bowel Sounds Additional comments: RUQ tenderness - Rectal Exam Rectal Exam: Deferred - Extremities Exam Extremities Exam: Normal Capillary Refill, Normal Inspection - Neurological Exam Neurological Exam: Alert, Awake - Psychiatric Exam Psychiatric exam: Normal Affect, Normal Mood - Skin Skin Exam: Dry, Intact, Normal Color, Warm Assessment and Plan - Assessment and Plan (Free Text) Assessment: RUQ Abdominal Pain / Dilated Bile ducts * Mild anemia, Elevated BUN 30, Cr 1.9, normal LFTs and lipase * Creatinine decreased to 1.2 on 09/16 * r/o pancreatic neoplasm * ED course: NS 1L; Zofran 4mg IVP; Morphine 2mg IVP * US abdominal - 1. Mild hepatic steatosis. 2. Distended gallbladder and diffuse dilatation of the common bile duct up without evidence of cholelithiasis or choledocholithiasis. Also suspected is dilatation of the cystic duct. CT scan of the abdomen and pelvis with oral and intravenous contrast is recommended for further evaluation and to exclude periampullary obstruction. (See full report) * CT abdomen/pelvis w/PO contrast - Distended gallbladder with dilated intra- and extrahepatic biliary ducts and tapering at the pancreas, atrophy of the pancreatic body and tail with mild prominence of pancreatic head,evaluation limited by lack of intravenous contrast. Obstructing lesion at the pancreatic head or ampulla cannot be excluded. MRCP suggested for more complete evaluation. (See full report) * GI consult, Dr. Flores, help appreciated * Surgery, Dr. Balbuena consulted, help appreciated * Tylenol 650mg PO Q6H PRN, pain Nausea / Vomiting * Zofran 4mg IVP Q8H prn * Liquid diet Acute Kidney Injury * Likely due to dehydration * NS 1L bolused in ED * GFR 27 * GFR increased to 45 on 09/16 * NS 0.9% at 100cc/hr Diabetes * Hold Home med: Metformin 1000mg PO BID for 24 hrs due to PO Contrast * Novolog ISS - low dose * f/u am labs: A1c: 6.4 * TSH: 1.93 * free T4: 1.24 * lipids WNL Hypertension * BP 98/62 on admission --> 138/72 * Continue Home: Amlodipine 5mg PO qd; Lisinopril 20mg PO qd; HCTZ 25mg PO qd Prophylaxis * Liquid diet * Pepcid 20mg IVP daily * Hep 5k SC Q12 * SCDs <Jaylyn Fajardo V - Last Filed: 09/17/16 09:05> Objective - Vital Signs/Intake and Output Vital Signs (last 24 hours): Temp Pulse Resp BP Pulse Ox 97.7 F 76 20 117/69 97 09/17/16 08:41 09/17/16 08:41 09/17/16 08:41 09/17/16 08:41 09/17/16 08:41 Intake and Output: 09/17/16 09/17/16 06:59 18:59 Intake Total 300 Balance 300 - Medications Medications: Current Medications Acetaminophen (Tylenol 325mg Tab) 650 mg PO Q6 PRN PRN Reason: Pain, Mild (1-3) Last Admin: 09/16/16 21:39 Dose: 650 mg Amlodipine Besylate (Norvasc) 5 mg PO DAILY [facility] Last Admin: 09/16/16 10:15 Dose: 5 mg Famotidine (Pepcid) 20 mg IVP DAILY [facility] Last Admin: 09/16/16 10:45 Dose: 20 mg Heparin Sodium (Porcine) (Heparin) 5,000 units SC Q12 [facility] Last Admin: 09/16/16 21:41 Dose: 5,000 units Hydrochlorothiazide (Hydrodiuril) 25 mg PO DAILY [facility] Last Admin: 09/16/16 10:15 Dose: 25 mg Sodium Chloride (Sodium Chloride 0.9%) 1,000 mls @ 100 mls/hr IV .Q10H [facility] Last Admin: 09/16/16 02:48 Dose: 100 mls/hr Insulin Aspart (Novolog) 0 unit SC ACHS [facility] PRN Reason: Protocol Last Admin: 09/17/16 07:59 Dose: Not Given Lisinopril (Zestril) 20 mg PO DAILY [facility] Last Admin: 09/16/16 10:14 Dose: 20 mg Ondansetron HCl (Zofran Inj) 4 mg IVP Q8H PRN PRN Reason: Nausea/Vomiting Pneumococcal Polyvalent Vaccine (Pneumovax 23 Vaccine) 0.5 ml IM .ONCE ONE Stop: 09/18/16 10:01 - Labs Labs: 09/16/16 08:10 09/16/16 08:10 Attending/Attestation - Attestation I have personally seen and examined this patient.: Yes I have fully participated in the care of the patient.: Yes I have reviewed all pertinent clinical information, including history, physical exam and plan: Yes Notes (Text): Patient seen, examined and case discussed with day-time resident. Patient seen this morning. Patient reports RUQ pain has improved, 6/10 on pain scale. patient reports the nausea is intermittent, but reminded her to ask for the PRN Zofran medication. Patient denies fever, denies chills, denies shortness of breathe, denies vomitting, denies constipation, denies BRBPR, denies cough. Patient is awaiting paperwork from [employer] (given its the weekend, unlikely to receive paper work today); will discuss with covering GI to see to order MRCP today. Discussed with nursing staff, patient refused IV fluids over night. Patient advised Zofran IV PRN nausea. Assessment/Plan 1) Abdominal Pain * GI consult, Dr. Gilbert, help appreciated * Surgery, Dr. Balbuena consulted, help appreciated * US abdominal - 1. Mild hepatic steatosis. 2. Distended gallbladder and diffuse dilatation of the common bile duct up without evidence of cholelithiasis or choledocholithiasis. Also suspected is dilatation of the cystic duct. CT scan of the abdomen and pelvis with oral and intravenous contrast is recommended for further evaluation and to exclude periampullary obstruction. (See full report) * CT abdomen/pelvis w/PO contrast - Distended gallbladder with dilated intra- and extrahepatic biliary ducts and tapering at the pancreas, atrophy of the pancreatic body and tail with mild prominence of pancreatic head,evaluation limited by lack of intravenous contrast. Obstructing lesion at the pancreatic head or ampulla cannot be excluded. MRCP suggested for more complete evaluation. (See full report) * Attempt to retrieve prior records from prior hospitalization at [place]? * Tylenol 650mg PO Q6H PRN, pain 2) Nausea / Vomiting * Zofran 4mg IVP Q8H prn * Liquid diet 3) Acute Kidney Injury * possible due to dehydration * NS 0.9% at 100cc/hr-->patient refused IV fluids over night * Monitor BUN/CR * Unknown baseline 4) Diabetes * Controlled * Hold Home med: Metformin 1000mg PO BID for 24-48 hours due to PO Contrast * Lisinopril 20mg PO qdaily * Novolog ISS - low dose * f/u am labs: A1c: 6.4 * TSH: 1.93 * free T4: 1.24 * lipids WNL 5) Hypertension * monitor vital signs * Continue Home: Amlodipine 5mg PO qdaily; Lisinopril 20mg PO qdaily; HCTZ 25mg PO qdaily 6) Prophylaxis * Liquid diet * Pepcid 20mg IVP daily for GI ppx * Hep 5000 SC Q12 for DVT ppx * SCDs * Will paperwork from prior hospitalization?
[2016-09-17] MEDS: (Novolog) Insulin Aspart, Recombinant 100 u/ml 10 ml vial SC SCH ×5 (07:59→21:57)
[2016-09-17 09:14] LABS: BASO # 0.1 K/uL (0.0-0.2); BASO % 1.3 % (0.0-2.0); EOS # 0.4 K/uL (0.0-0.7); EOS % 6.7 % (0.0-4.0); HEMATOCRIT 31.8 % (34.0-47.0); LYMPH # 1.8 K/uL (1.0-4.3); LYMPH % 33.5 % (20.0-40.0); MEAN CELL VOLUME 90.2 fL (81.0-99.0); MEAN CORPUSCULAR HEMOGLOBIN 30.2 pg (27.0-31.0); MEAN CORPUSCULAR HGB CONC 33.5 g/dL (33.0-37.0); MEAN PLATELET VOLUME 8.6 fL (7.2-11.7); MONO # 0.4 K/uL (0.0-0.8); MONO % 7.1 % (0.0-10.0); WHITE BLOOD COUNT 5.4 K/uL (4.8-10.8)
[2016-09-17 09:33] LABS: POTASSIUM 4.5 mmol/L (3.6-5.2)
[2016-09-17 09:35] LABS: ALB/GLOB RATIO 1.3 (1.0-2.1); BILIRUBIN,TOTAL 0.9 mg/dL (0.2-1.3)
[2016-09-17 09:36] LABS: CALCIUM 9.1 mg/dl (8.6-10.4); MAGNESIUM 1.5 mg/dL (1.6-2.3); PHOSPHOROUS 3.8 mg/dL (2.5-4.5)
--- NOTE | 2016-09-17 09:48 | CP.PCM.PN ---
<Lopez Hook - Last Filed: 09/17/16 09:48> Subjective - Date & Time of Evaluation Date of Evaluation: 09/17/16 Time of Evaluation: 09:45 - Subjective Subjective: Surgery for Dr. Sree Lima s&swati VILLEGAS. Reports RUQ pain and nausea. On CLD. Denies F/D/CP/SOB. + amb. Objective - Vital Signs/Intake and Output Vital Signs (last 24 hours): Temp Pulse Resp BP Pulse Ox 97.7 F 76 20 117/69 97 09/17/16 08:41 09/17/16 08:41 09/17/16 08:41 09/17/16 08:41 09/17/16 08:41 Intake and Output: 09/17/16 09/17/16 06:59 18:59 Intake Total 300 Balance 300 - Medications Medications: Current Medications Acetaminophen (Tylenol 325mg Tab) 650 mg PO Q6 PRN PRN Reason: Pain, Mild (1-3) Last Admin: 09/16/16 21:39 Dose: 650 mg Amlodipine Besylate (Norvasc) 5 mg PO DAILY [facility] Last Admin: 09/17/16 09:29 Dose: 5 mg Famotidine (Pepcid) 20 mg IVP DAILY [facility] Last Admin: 09/16/16 10:45 Dose: 20 mg Heparin Sodium (Porcine) (Heparin) 5,000 units SC Q12 [facility] Last Admin: 09/17/16 09:29 Dose: 5,000 units Hydrochlorothiazide (Hydrodiuril) 25 mg PO DAILY [facility] Last Admin: 09/17/16 09:29 Dose: 25 mg Sodium Chloride (Sodium Chloride 0.9%) 1,000 mls @ 100 mls/hr IV .Q10H [facility] Last Admin: 09/16/16 02:48 Dose: 100 mls/hr Insulin Aspart (Novolog) 0 unit SC ACHS [facility] PRN Reason: Protocol Last Admin: 09/17/16 07:59 Dose: Not Given Lisinopril (Zestril) 20 mg PO DAILY [facility] Last Admin: 09/16/16 10:14 Dose: 20 mg Ondansetron HCl (Zofran Inj) 4 mg IVP Q8H PRN PRN Reason: Nausea/Vomiting Last Admin: 09/17/16 09:25 Dose: 4 mg Pneumococcal Polyvalent Vaccine (Pneumovax 23 Vaccine) 0.5 ml IM .ONCE ONE Stop: 09/18/16 10:01 - Labs Labs: 09/17/16 08:58 09/17/16 08:58 APTT 32 SECONDS (21-34) 09/17/16 08:58 - Constitutional Appears: No Acute Distress - Head Exam Head Exam: ATRAUMATIC, NORMAL INSPECTION, NORMOCEPHALIC - Eye Exam Eye Exam: EOMI, Normal appearance, PERRL Pupil Exam: NORMAL ACCOMODATION, PERRL - ENT Exam ENT Exam: Mucous Membranes Moist, Normal Exam - Neck Exam Neck Exam: Full ROM, Normal Inspection. absent: Lymphadenopathy - Respiratory Exam Respiratory Exam: Clear to Ausculation Bilateral, NORMAL BREATHING PATTERN - Cardiovascular Exam Cardiovascular Exam: REGULAR RHYTHM, +S1, +S2. absent: Murmur - GI/Abdominal Exam GI & Abdominal Exam: Soft, Tenderness, Normal Bowel Sounds. absent: Distended, Firm, Guarding Additional comments: RUQ TTP - Extremities Exam Extremities Exam: Full ROM, Normal Capillary Refill, Normal Inspection. 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 Plan: -Pain control -Nausea control -f/u reports for [facility] -needs to f/u with original hepatobiliary surgeon -no plans for surgical intervention at this time, ok for diet as tolerated -f/u GI recommendations -if reports unobtainable would recommend repeat MRCP -will cont to follow Will SHARON Balbuena <Ganesh Balbuena - Last Filed: 09/17/16 22:40> Objective - Vital Signs/Intake and Output Vital Signs (last 24 hours): Temp Pulse Resp BP Pulse Ox 97.2 F L 83 20 129/69 97 09/17/16 16:00 09/17/16 16:00 09/17/16 16:00 09/17/16 16:00 09/17/16 16:00 Intake and Output: 09/17/16 09/18/16 18:59 06:59 Intake Total 800 Balance 800 - Medications Medications: Current Medications Acetaminophen (Tylenol 325mg Tab) 650 mg PO Q6 PRN PRN Reason: Pain, Mild (1-3) Last Admin: 09/17/16 22:08 Dose: 650 mg Amlodipine Besylate (Norvasc) 5 mg PO DAILY [facility] Last Admin: 09/17/16 09:29 Dose: 5 mg Famotidine (Pepcid) 20 mg IVP DAILY [facility] Last Admin: 09/17/16 12:13 Dose: 20 mg Heparin Sodium (Porcine) (Heparin) 5,000 units SC Q12 [facility] Last Admin: 09/17/16 21:55 Dose: 5,000 units Hydrochlorothiazide (Hydrodiuril) 25 mg PO DAILY [facility] Last Admin: 09/17/16 09:29 Dose: 25 mg Sodium Chloride (Sodium Chloride 0.9%) 1,000 mls @ 100 mls/hr IV .Q10H [facility] Last Admin: 09/17/16 22:06 Dose: 100 mls/hr Insulin Aspart (Novolog) 0 unit SC ACHS [facility] PRN Reason: Protocol Last Admin: 09/17/16 21:57 Dose: Not Given Lisinopril (Zestril) 20 mg PO DAILY [facility] Last Admin: 09/17/16 09:49 Dose: 20 mg Ondansetron HCl (Zofran Inj) 4 mg IVP Q8H PRN PRN Reason: Nausea/Vomiting Last Admin: 09/17/16 22:06 Dose: 4 mg Oxycodone/Acetaminophen (Percocet 5/325 Mg Tab) 1 tab PO Q4H PRN PRN Reason: Pain, moderate (4-7) Stop: 09/20/16 09:50 Pneumococcal Polyvalent Vaccine (Pneumovax 23 Vaccine) 0.5 ml IM .ONCE ONE Stop: 09/18/16 10:01 - Labs Labs: 09/17/16 08:58 09/17/16 08:58 APTT 32 SECONDS (21-34) 09/17/16 08:58 Attending/Attestation - Attestation I have personally seen and examined this patient.: Yes I have fully participated in the care of the patient.: Yes I have reviewed all pertinent clinical information, including history, physical exam and plan: Yes Notes (Text): 09/17/16 22:40 Pt was seen and examined at bedside on 09/17/16 Agree with above note and assessment Pt with Dilated intra and Extrahepatic billiary tree No need for any surgical intervention F.U as out pt with hepatobillary surgeon Plan d.w pt in detail Risk and benefit explained in detail
[2016-09-17] MEDS ORDERED: Oxycodone/Acetaminophen 5/325 mg Tab PO PRN (09:49)
[2016-09-17] MEDS: Sodium Chloride 0.9% 1,000 ML IV SCH ×3 (12:15→22:06)
--- NOTE | 2016-09-17 13:00 | CP.PCM.PN ---
Subjective - Date & Time of Evaluation Date of Evaluation: 09/17/16 Time of Evaluation: 12:57 - Subjective Subjective: COVERING DR GIMENEZ/MILES No records received from [facility] or [place] at present Still with pain but no vomiting LFT's remain normal CT and Sono reviewed. Suspicion for possible pancreatic mass? MRCP still not done. Objective - Vital Signs/Intake and Output Vital Signs (last 24 hours): Temp Pulse Resp BP Pulse Ox 97.7 F 76 20 117/69 97 09/17/16 08:41 09/17/16 08:41 09/17/16 08:41 09/17/16 08:41 09/17/16 08:41 Intake and Output: 09/17/16 09/17/16 06:59 18:59 Intake Total 300 Balance 300 - Medications Medications: Current Medications Acetaminophen (Tylenol 325mg Tab) 650 mg PO Q6 PRN PRN Reason: Pain, Mild (1-3) Last Admin: 09/16/16 21:39 Dose: 650 mg Amlodipine Besylate (Norvasc) 5 mg PO DAILY [facility] Last Admin: 09/17/16 09:29 Dose: 5 mg Famotidine (Pepcid) 20 mg IVP DAILY [facility] Last Admin: 09/17/16 12:13 Dose: 20 mg Heparin Sodium (Porcine) (Heparin) 5,000 units SC Q12 [facility] Last Admin: 09/17/16 09:29 Dose: 5,000 units Hydrochlorothiazide (Hydrodiuril) 25 mg PO DAILY [facility] Last Admin: 09/17/16 09:29 Dose: 25 mg Sodium Chloride (Sodium Chloride 0.9%) 1,000 mls @ 100 mls/hr IV .Q10H [facility] Last Admin: 09/17/16 12:15 Dose: Not Given Insulin Aspart (Novolog) 0 unit SC ACHS [facility] PRN Reason: Protocol Last Admin: 09/17/16 12:14 Dose: Not Given Lisinopril (Zestril) 20 mg PO DAILY [facility] Last Admin: 09/17/16 09:49 Dose: 20 mg Ondansetron HCl (Zofran Inj) 4 mg IVP Q8H PRN PRN Reason: Nausea/Vomiting Last Admin: 09/17/16 09:25 Dose: 4 mg Oxycodone/Acetaminophen (Percocet 5/325 Mg Tab) 1 tab PO Q4H PRN PRN Reason: Pain, moderate (4-7) Stop: 09/20/16 09:50 Pneumococcal Polyvalent Vaccine (Pneumovax 23 Vaccine) 0.5 ml IM .ONCE ONE Stop: 09/18/16 10:01 - Labs Labs: 09/17/16 08:58 09/17/16 08:58 APTT 32 SECONDS (21-34) 09/17/16 08:58 - Constitutional Appears: No Acute Distress - Eye Exam Eye Exam: PERRL. absent: Scleral icterus - Respiratory Exam Respiratory Exam: NORMAL BREATHING PATTERN - Cardiovascular Exam Cardiovascular Exam: REGULAR RHYTHM, +S1 - GI/Abdominal Exam GI & Abdominal Exam: Guarding, Soft, Normal Bowel Sounds. absent: Tenderness, Mass, Organomegaly, Rebound - Extremities Exam Extremities Exam: Normal Inspection Assessment and Plan (1) Dilated gallbladder Assessment & Plan: Etiology unclear. r/o distal CBD or pancreatic mass, stricture. Records from [facility] requested. Awaiting MRCP. May need consult from interventional GI team from [facility]. Status: Acute (2) Abdominal pain Assessment & Plan: as above Repeat LFTs Status: Acute (3) Dilated bile duct Assessment & Plan: as above Status: Acute
[2016-09-17 13:57] LABS: URINE BILIRUBIN NEGATIVE (NEGATIVE); URINE BLOOD NEGATIVE (NEGATIVE); URINE COLOR Yellow (YELLOW); URINE GLUCOSE (UA) NORMAL (Normal); URINE KETONE NEGATIVE (NEGATIVE); URINE LEUKOCYTE ESTERASE NEG Leu/uL (Negative); URINE PROTEIN NEGATIVE (NEGATIVE); URINE UROBILINOGEN NORMAL mg/dL (0.2-1.0); WBC URINE < 1 /hpf (0-5)
[2016-09-18] MEDS: Sodium Chloride 0.9% 1,000 ML IV SCH (04:15)
[2016-09-18] MEDS: (Novolog) Insulin Aspart, Recombinant 100 u/ml 10 ml vial SC SCH ×2 (07:17→11:29)
[2016-09-18 08:36] LABS: BASO # 0.1 K/uL (0.0-0.2); BASO % 1.2 % (0.0-2.0); EOS # 0.3 K/uL (0.0-0.7); EOS % 4.9 % (0.0-4.0); HEMATOCRIT 29.9 % (34.0-47.0); LYMPH % 35.9 % (20.0-40.0); MEAN CELL VOLUME 89.6 fL (81.0-99.0); MEAN CORPUSCULAR HEMOGLOBIN 30.2 pg (27.0-31.0); MEAN CORPUSCULAR HGB CONC 33.7 g/dL (33.0-37.0); MEAN PLATELET VOLUME 8.3 fL (7.2-11.7); MONO # 0.4 K/uL (0.0-0.8); MONO % 7.2 % (0.0-10.0); RED CELL DISTRIBUTION WIDTH 13.9 % (11.5-14.5); WHITE BLOOD COUNT 5.6 K/uL (4.8-10.8)
[2016-09-18 08:43] VITALS: BP 135/79; PULSE 84; TEMP 98.3; O2SAT 98
[2016-09-18 08:44] LABS: POTASSIUM 3.8 mmol/L (3.6-5.2)
[2016-09-18 08:46] LABS: ALB/GLOB RATIO 1.2 (1.0-2.1); BILIRUBIN,DIRECT 0.4 mg/dL (0.0-0.4); BILIRUBIN,TOTAL 0.8 mg/dL (0.2-1.3); TOTAL PROTEIN 6.5 g/dL (6.3-8.3)
[2016-09-18 08:47] LABS: CALCIUM 8.8 mg/dl (8.6-10.4); MAGNESIUM 1.5 mg/dL (1.6-2.3); PHOSPHOROUS 3.3 mg/dL (2.5-4.5)
[2016-09-18 09:14] LABS: CARCINOEMBRYONIC ANTIGEN 4.8 ng/mL (0-3.0)
[2016-09-18] MEDS ORDERED: Pneumococcal 23-Valent Vaccine IM ONE (10:00)
[2016-09-18] MEDS: Magnesium Sulfate 1 gm in D5W 1 GM/100 ML BAG IVPB SCH ×2 (10:26→10:40)
--- NOTE | 2016-09-18 10:52 | CP.PCM.DIS ---
<Jaylyn Fajardo V - Last Filed: 09/18/16 14:21> Provider - Provider Date of Admission: 09/15/16 22:13 Attending physician: Aaron Jolly MD Hospital Course - Lab Results Lab Results: Most Recent Lab Values WBC 5.6 K/uL (4.8-10.8) 09/18/16 08:24 RBC 3.34 Mil/uL (3.80-5.20) L 09/18/16 08:24 Hgb 10.1 g/dL (11.0-16.0) L 09/18/16 08:24 Hct 29.9 % (34.0-47.0) L 09/18/16 08:24 MCV 89.6 fL (81.0-99.0) 09/18/16 08:24 MCH 30.2 pg (27.0-31.0) 09/18/16 08:24 MCHC 33.7 g/dL (33.0-37.0) 09/18/16 08:24 RDW 13.9 % (11.5-14.5) 09/18/16 08:24 Plt Count 292 K/uL (130-400) 09/18/16 08:24 MPV 8.3 fL (7.2-11.7) 09/18/16 08:24 Neut % (Auto) 50.8 % (50.0-75.0) 09/18/16 08:24 Lymph % (Auto) 35.9 % (20.0-40.0) 09/18/16 08:24 [place] % (Auto) 7.2 % (0.0-10.0) 09/18/16 08:24 Eos % (Auto) 4.9 % (0.0-4.0) H 09/18/16 08:24 Baso % (Auto) 1.2 % (0.0-2.0) 09/18/16 08:24 Neut # 2.8 K/uL (1.8-7.0) 09/18/16 08:24 Lymph # 2.0 K/uL (1.0-4.3) 09/18/16 08:24 [place] # 0.4 K/uL (0.0-0.8) 09/18/16 08:24 Eos # 0.3 K/uL (0.0-0.7) 09/18/16 08:24 Baso # 0.1 K/uL (0.0-0.2) 09/18/16 08:24 APTT 32 SECONDS (21-34) 09/17/16 08:58 Sodium 138 mmol/L (132-148) 09/18/16 08:24 Potassium 3.8 mmol/L (3.6-5.2) 09/18/16 08:24 Chloride 101 mmol/L (98-107) 09/18/16 08:24 Carbon Dioxide 22 mmol/L (22-30) 09/18/16 08:24 Anion Gap 20 (10-20) 09/18/16 08:24 BUN 14 mg/dL (7-17) 09/18/16 08:24 Creatinine 1.3 MG/DL (0.7-1.2) H 09/18/16 08:24 Est GFR ( Amer) 50 09/18/16 08:24 Est GFR (Non-Af Amer) 41 09/18/16 08:24 POC Glucose (mg/dL) 73 mg/dL (65-110) 09/18/16 07:07 Random Glucose 74 mg/dL (65-105) 09/18/16 08:24 Hemoglobin A1c 6.4 % (4.2-6.5) 09/16/16 08:10 Calcium 8.8 mg/dl (8.6-10.4) 09/18/16 08:24 Phosphorus 3.3 mg/dL (2.5-4.5) 09/18/16 08:24 Magnesium 1.5 mg/dL (1.6-2.3) L 09/18/16 08:24 Total Bilirubin 0.8 mg/dL (0.2-1.3) 09/18/16 08:24 Direct Bilirubin 0.4 mg/dL (0.0-0.4) 09/18/16 08:24 GGT 237 U/L (8-78) H 09/16/16 11:35 AST 22 U/L (14-36) 09/18/16 08:24 ALT 30 U/L (9-52) 09/18/16 08:24 Alkaline Phosphatase 77 U/L (38-126) 09/18/16 08:24 Total Protein 6.5 g/dL (6.3-8.3) 09/18/16 08:24 Albumin 3.6 g/dL (3.5-5.0) 09/18/16 08:24 Globulin 3.0 gm/dL (2.2-3.9) 09/18/16 08:24 Albumin/Globulin Ratio 1.2 (1.0-2.1) 09/18/16 08:24 Triglycerides 107 mg/dL (0-149) 09/16/16 11:35 Cholesterol 181 mg/dL (0-199) 09/16/16 11:35 LDL Cholesterol Direct 108 mg/dL (0-129) 09/16/16 11:35 HDL Cholesterol 43 mg/dL (30-70) 09/16/16 11:35 Lipase 279 U/L (23-300) 09/15/16 14:39 Alpha Fetoprotein < 0.8 ng/mL (0.0-7.5) 09/18/16 08:24 Carcinoembryonic Ag 4.8 ng/mL (0-3.0) H 09/18/16 08:24 CA 19-9 Antigen < 1.4 U/mL (0-37) 09/16/16 11:35 Free T4 1.24 ng/dL (0.78-2.19) 09/16/16 08:10 TSH 3rd Generation 1.93 mIU/L (0.46-4.68) 09/16/16 08:10 Urine Color Yellow (YELLOW) 09/17/16 13:34 Urine Clarity Clear (Clear) 09/17/16 13:34 Urine pH 5.0 (5.0-8.0) 09/17/16 13:34 Ur Specific [place] 1.009 (1.003-1.030) 09/17/16 13:34 Urine Protein Negative mg/dL (NEGATIVE) 09/17/16 13:34 Urine Glucose (UA) Normal mg/dL (Normal) 09/17/16 13:34 Urine Ketones Negative mg/dL (NEGATIVE) 09/17/16 13:34 Urine Blood Negative (NEGATIVE) 09/17/16 13:34 Urine Nitrate Negative (NEGATIVE) 09/17/16 13:34 Urine Bilirubin Negative (NEGATIVE) 09/17/16 13:34 Urine Urobilinogen Normal mg/dL (0.2-1.0) 09/17/16 13:34 Ur Leukocyte Esterase Neg Juan Diego/uL (Negative) 09/17/16 13:34 Urine WBC (Auto) < 1 /hpf (0-5) 09/17/16 13:34 Ur Squamous Epith Cells < 1 /hpf (0-5) 09/17/16 13:34 C. difficile Ag & Toxin Negative (NEGATIVE) 09/17/16 18:10 Discharge Plan - Discharge Medications Prescriptions: amLODIPine [Norvasc] 5 mg PO DAILY #30 Ciprofloxacin [Cipro] 500 mg PO BID 5 Days hydroCHLOROthiazide [Hydrodiuril] 25 mg PO DAILY #30 tab Lisinopril [Zestril] 20 mg PO DAILY #30 tab Loperamide [Imodium] 2 mg PO QID PRN #12 cap PRN Reason: Diarrhea MetFORMIN [glucoPHAGE] 1,000 mg PO BID #60 metroNIDAZOLE [Flagyl] 500 mg PO TID 5 Days oxyCODONE/Acetaminophen [Percocet 5/325 mg Tab] 1 tab PO Q6H PRN #20 tab PRN Reason: Pain, Moderate (4-7) - Follow Up Plan Condition: STABLE Disposition: HOME/ ROUTINE Instructions: Acute Abdominal Pain (DC), Acute Abdominal Pain (GEN), Hypertension (DC), Hypertension (GEN) Additional Instructions: Please discharge patient home as per Dr. Fajardo Please start the following new medications as prescribed: 1. Ciprofloxacin 500mg PO BID ( for 5 days, pleases start dose on 09/19/16 and complete dose on September 23, 2016) 2. Metronidazole 500mg PO TID ( for 5 days, pleases start dose on 09/19/16 and complete dose on September 23, 2016) 3. Lisinopril 20mg PO daily 4. Hydrochlorothiazide 25mg PO daily 5. Oxycodone/Acetaminophen 5/325 1 tab PO Q6H ( 20 Tablets) 6. Loperamide 2mg PO QID Please resume all other home medications as prescribed: 1. Amlodopine 5mg PO daily 2. Metformin 1000mg PO BID Please call the [facility] at [phone] to schedule an appointment within a week for a follow-up visit and in order to obtain a referral to General surgery, Dr. Rain. Please ask for Nephrology referral during your appointment at the [facility] to monitor kidney function as patient had elevated Cr of 1.9 on admission, which then trended down to 1.3 upon discharge Please be advised to bring GI diagnostic reports from [facility] to your appointment Please be advised to return to the hospital if you experience uncontrolled pain , fever, nausea, or your skin appears yellow (Jaundice). Please return to the hospital if symptoms persist Instructions explained to patient and patient is agreeable. Attending/Attestation - Attestation I have personally seen and examined this patient.: Yes I have fully participated in the care of the patient.: Yes I have reviewed all pertinent clinical information, including history, physical exam and plan: Yes Notes (Text): Patient seen, examined, and case discussed with day-time resident. Patient tolerated liquid diet and nausea controlled with anti-emetic. Patient reports diarrhea. C dif negative and has been on liquid diet Patient afebrile and patient is pain controlled. Patient able to verbalize discharge instructions with both me and my resident on separate occasions. Greatly appreciate input by GI and General surgery during hospitalization Discussed discharge order and instructions with the resident. Medications reconciled with the resident. Review [facility], patient is not taking any controlled license per review. Patient has instructions provided by [employer] [facility] given she is in the process of applying for [employer] insurance Medications upon discharge: 1) Norvasc 5mg PO daily (30/no refill) 2) Ciprofloxacin 500mg PO bid (10/no refills) 3) HCTZ 25mg PO daily (30/no refill) 4) Lisinopril 20mg PO daily (30/no refills) 5) Loperamide PRN diarrhea (3 day only) 6) Metformin 1000mg PO bid 7) Flagyl 500mg PO tid (15/no refills) 8) Percocet 5/325 1 tab PO Q 6hours (20 tabs/no refills) Patient advised to call [facility] ([phone]) to make an appointment to establish care. Patient upon follow-up will need referral to general surgery, and nephrology. Patient advises she has unbearable pain, fever , yellowing of the skin (jaundice) to come to the emergency room immediately. Patient advised to bring in reports of prior CT/MRI/endoscopy from prior hospitalizations at [facility]. This is a summary of patient's hospitalization. Please see EMR for further details. Assessment/Plan 1) Abdominal Pain * GI consult, Dr. Gilbert, help appreciated * Surgery, Dr. Balbuena consulted, help appreciated * US abdominal - 1. Mild hepatic steatosis. 2. Distended gallbladder and diffuse dilatation of the common bile duct up without evidence of cholelithiasis or choledocholithiasis. Also suspected is dilatation of the cystic duct. CT scan of the abdomen and pelvis with oral and intravenous contrast is recommended for further evaluation and to exclude periampullary obstruction. (See full report) * CT abdomen/pelvis w/PO contrast - Distended gallbladder with dilated intra- and extrahepatic biliary ducts and tapering at the pancreas, atrophy of the pancreatic body and tail with mild prominence of pancreatic head,evaluation limited by lack of intravenous contrast. Obstructing lesion at the pancreatic head or ampulla cannot be excluded. MRCP suggested for more complete evaluation. (See full report) * Attempt to retrieve prior records from prior hospitalization at [place]--> however, no reports available during the weekend * Tylenol 650mg PO Q6H PRN, pain 2) Nausea / Vomiting * Zofran 4mg IVP Q8H prn * Controlled today * Tolerating liquid diet 3) Acute Kidney Injury * possible due to dehydration * NS 0.9% at 100cc/hr-->patient refused IV fluids over night * Monitor BUN/CR * Unknown baseline 4) Diabetes * Controlled * Hold Home med: Metformin 1000mg PO BID resume upon discharge * Lisinopril 20mg PO qdaily * Novolog ISS - low dose * f/u am labs: A1c: 6.4 * TSH: 1.93 * free T4: 1.24 * lipids WNL 5) Hypertension * monitor vital signs * Continue Home: Amlodipine 5mg PO qdaily; Lisinopril 20mg PO qdaily; HCTZ 25mg PO qdaily-->resumed on discharge 6) Prophylaxis * Liquid diet * Pepcid 20mg IVP daily for GI ppx * Hep 5000 SC Q12 for DVT ppx * SCDs <Shruthi Leija - Last Filed: 09/18/16 15:36> Provider - Provider Date of Admission: 09/15/16 22:13 Attending physician: Aaron Jolly MD Time Spent in preparation of Discharge (in minutes): 45 Hospital Course - Lab Results Lab Results: Most Recent Lab Values WBC 5.6 K/uL (4.8-10.8) 09/18/16 08:24 RBC 3.34 Mil/uL (3.80-5.20) L 09/18/16 08:24 Hgb 10.1 g/dL (11.0-16.0) L 09/18/16 08:24 Hct 29.9 % (34.0-47.0) L 09/18/16 08:24 MCV 89.6 fL (81.0-99.0) 09/18/16 08:24 MCH 30.2 pg (27.0-31.0) 09/18/16 08:24 MCHC 33.7 g/dL (33.0-37.0) 09/18/16 08:24 RDW 13.9 % (11.5-14.5) 09/18/16 08:24 Plt Count 292 K/uL (130-400) 09/18/16 08:24 MPV 8.3 fL (7.2-11.7) 09/18/16 08:24 Neut % (Auto) 50.8 % (50.0-75.0) 09/18/16 08:24 Lymph % (Auto) 35.9 % (20.0-40.0) 09/18/16 08:24 [place] % (Auto) 7.2 % (0.0-10.0) 09/18/16 08:24 Eos % (Auto) 4.9 % (0.0-4.0) H 09/18/16 08:24 Baso % (Auto) 1.2 % (0.0-2.0) 09/18/16 08:24 Neut # 2.8 K/uL (1.8-7.0) 09/18/16 08:24 Lymph # 2.0 K/uL (1.0-4.3) 09/18/16 08:24 [place] # 0.4 K/uL (0.0-0.8) 09/18/16 08:24 Eos # 0.3 K/uL (0.0-0.7) 09/18/16 08:24 Baso # 0.1 K/uL (0.0-0.2) 09/18/16 08:24 APTT 32 SECONDS (21-34) 09/17/16 08:58 Sodium 138 mmol/L (132-148) 09/18/16 08:24 Potassium 3.8 mmol/L (3.6-5.2) 09/18/16 08:24 Chloride 101 mmol/L (98-107) 09/18/16 08:24 Carbon Dioxide 22 mmol/L (22-30) 09/18/16 08:24 Anion Gap 20 (10-20) 09/18/16 08:24 BUN 14 mg/dL (7-17) 09/18/16 08:24 Creatinine 1.3 MG/DL (0.7-1.2) H 09/18/16 08:24 Est GFR ( Amer) 50 09/18/16 08:24 Est GFR (Non-Af Amer) 41 09/18/16 08:24 POC Glucose (mg/dL) 73 mg/dL (65-110) 09/18/16 07:07 Random Glucose 74 mg/dL (65-105) 09/18/16 08:24 Hemoglobin A1c 6.4 % (4.2-6.5) 09/16/16 08:10 Calcium 8.8 mg/dl (8.6-10.4) 09/18/16 08:24 Phosphorus 3.3 mg/dL (2.5-4.5) 09/18/16 08:24 Magnesium 1.5 mg/dL (1.6-2.3) L 09/18/16 08:24 Total Bilirubin 0.8 mg/dL (0.2-1.3) 09/18/16 08:24 Direct Bilirubin 0.4 mg/dL (0.0-0.4) 09/18/16 08:24 GGT 237 U/L (8-78) H 09/16/16 11:35 AST 22 U/L (14-36) 09/18/16 08:24 ALT 30 U/L (9-52) 09/18/16 08:24 Alkaline Phosphatase 77 U/L (38-126) 09/18/16 08:24 Total Protein 6.5 g/dL (6.3-8.3) 09/18/16 08:24 Albumin 3.6 g/dL (3.5-5.0) 09/18/16 08:24 Globulin 3.0 gm/dL (2.2-3.9) 09/18/16 08:24 Albumin/Globulin Ratio 1.2 (1.0-2.1) 09/18/16 08:24 Triglycerides 107 mg/dL (0-149) 09/16/16 11:35 Cholesterol 181 mg/dL (0-199) 09/16/16 11:35 LDL Cholesterol Direct 108 mg/dL (0-129) 09/16/16 11:35 HDL Cholesterol 43 mg/dL (30-70) 09/16/16 11:35 Lipase 279 U/L (23-300) 09/15/16 14:39 Alpha Fetoprotein < 0.8 ng/mL (0.0-7.5) 09/18/16 08:24 Carcinoembryonic Ag 4.8 ng/mL (0-3.0) H 09/18/16 08:24 CA 19-9 Antigen < 1.4 U/mL (0-37) 09/16/16 11:35 Free T4 1.24 ng/dL (0.78-2.19) 09/16/16 08:10 TSH 3rd Generation 1.93 mIU/L (0.46-4.68) 09/16/16 08:10 Urine Color Yellow (YELLOW) 09/17/16 13:34 Urine Clarity Clear (Clear) 09/17/16 13:34 Urine pH 5.0 (5.0-8.0) 09/17/16 13:34 Ur Specific [place] 1.009 (1.003-1.030) 09/17/16 13:34 Urine Protein Negative mg/dL (NEGATIVE) 09/17/16 13:34 Urine Glucose (UA) Normal mg/dL (Normal) 09/17/16 13:34 Urine Ketones Negative mg/dL (NEGATIVE) 09/17/16 13:34 Urine Blood Negative (NEGATIVE) 09/17/16 13:34 Urine Nitrate Negative (NEGATIVE) 09/17/16 13:34 Urine Bilirubin Negative (NEGATIVE) 09/17/16 13:34 Urine Urobilinogen Normal mg/dL (0.2-1.0) 09/17/16 13:34 Ur Leukocyte Esterase Neg Juan Diego/uL (Negative) 09/17/16 13:34 Urine WBC (Auto) < 1 /hpf (0-5) 09/17/16 13:34 Ur Squamous Epith Cells < 1 /hpf (0-5) 09/17/16 13:34 C. difficile Ag & Toxin Negative (NEGATIVE) 09/17/16 18:10 - Hospital Course Hospital Course: As per admission: HPI: This 65 y/o female with PMHx of HTN, DM, Dilated Gallbladder - presents c/o RUQ abdominal pain with nausea/vomiting for the past 3 days. She admits to dealing with this issue for over 6 months, and her PMD initially suspected gastritis, treating her appropriately. Her symptoms did not resolve, and 3 weeks ago, her PMD sent her to [facility] for 6/10 RUQ pain. She was admitted for 2 days, received an abdominal US as well as an EGD, however she does not recall the results, stating that it is an issue with her Gallbladder. They treated her pain and gave her IV abx while admitted, however she states that "they did not fix the problem because I do not have insurance." Soon after discharge, her RUQ pain resumed, and 3 days ago, it intensified to an 8/10 with radiation to the R back. She admits to associated nausea, vomiting, and decreased appetite. She has vomited 3-4 times per day, for the past 3 days, and admits to feeling weak a result. She denies hematemesis. She otherwise denies f/c, dizziness, headache , chest pain, palpitations, sore throat, dysphagia, SOB, d/c, dysuria, LE swelling, recent travel, or sick contacts Hospital Course: Patient was admitted for a 3-day history of right upper quadrant pain, nausea and vomiting and the consideration of biliary cholangitis. Patient had been worked up for these complaints previously and had a gallbladder cyst drained, but has no insurance at this time and is unable to pay for an elective cholecystectomy. GI consult was placed to Dr. Negro, who did not note biliary stones and recommended surgical evaluation. Patient remained afebrile throughout hospitalization and there is low clinical concern for cholangitis at this time. Surgical consult was placed to Dr. Ralph, who did not recommend surgery at this time. Patient remained stable throughout the duration of her hospitalization and is now cleared by her medical team to be discharged to her home. It is recommended that the patient follow up at the [facility] and call to make an appointment at to establish care. It is also recommended that the patient apply for [facility] through [facility]. Patient is to obtain a surgery referral from [facility] and follow-up with Dr. Parks (surgery) for future treatment recommendations. Pertinent study results: Abdomen Ultrasound (09/15/16): * Mild hepatic steatosis. * Distended gallbladder and diffuse dilatation of the common bile duct up without evidence of cholelithiasis or choledocholithiasis. Also suspected is dilatation of the cystic duct. CT scan of the abdomen and pelvis with oral and intravenous contrast is recommended for further evaluation and to exclude periampullary obstruction CT abdomen/pelvis w/PO contrast - * Distended gallbladder with dilated intra-and extrahepatic biliary ducts and tapering at the pancreas, atrophy of the pancreatic body and tail with mild prominence of pancreatic head,evaluation limited by lack of intravenous contrast. Obstructing lesion at the pancreatic head or ampulla cannot be excluded. MRCP suggested for more complete evaluation.(See full report) This is a brief summary of events. For a complete course, please refer to the medical record. Discharge Exam - Head Exam Head Exam: ATRAUMATIC, NORMAL INSPECTION, NORMOCEPHALIC - Eye Exam Eye Exam: EOMI, Normal appearance - ENT Exam ENT Exam: Mucous Membranes Moist, Normal Exam - Respiratory Exam Respiratory Exam: Clear to PA & Lateral, NORMAL BREATHING PATTERN - Cardiovascular Exam Cardiovascular Exam: REGULAR RHYTHM, +S1, +S2 - GI/Abdominal Exam GI & Abdominal Exam: Normal Bowel Sounds, Soft - Extremities Exam Extremities exam: normal capillary refill, normal inspection - Neurological Exam Neurological exam: Alert, Oriented x3 - Psychiatric Exam Psychiatric exam: Normal Affect, Normal Mood - Skin Skin Exam: Dry, Normal Color, Warm
== END 2016-09-18 14:05 | disposition home or self-care (01) | DRG 557 ==
LOC: C.ER 13:48 → C.9E 22:13 → C.3T 23:56
PROVIDERS: ADMIT Family Medicine; ATTEND Family Medicine
DX: K82.8 Other specified diseases of gallbladder (principal); N17.9 Acute kidney failure, unspecified; E86.0 Dehydration; K83.8 Other specified diseases of biliary tract; K76.0 Fatty (change of) liver, not elsewhere classified; D64.9 Anemia, unspecified; I10 Essential (primary) hypertension; E11.9 Type 2 diabetes mellitus without complications; K29.70 Gastritis, unspecified, without bleeding; Z79.84 Long term (current) use of oral hypoglycemic drugs